=== PATIENT | male | born 1960 | race Caucasian/White ===

== ENCOUNTER 2017-12-26 23:31 | Inpatient (IN) ==
--- NOTE | 2017-12-27 00:17 | ED ---
HPI General Chief Complaint: Chest Pain Stated Complaint: Chest pain Time Seen by Provider: 12/27/17 00:06 History of Present Illness HPI narrative: Patient is 57-year-old male with history of [place] in October 2017, CABG done induced February 2017, with stents, on Brilinta, history of high blood pressure. Patient felt indigestion type pressure chest pain for 2 hours. The symptoms were similar to his October non-STEMI. Patient took 2 tablets of nitroglycerin and pain resolved. In the emergency room patient has mild headache. Related Data Home Medications Medication Instructions Recorded Confirmed Carafate 140 mg PO DAILY NEB PRN 12/26/17 12/27/17 amlodipine 2.5 mg PO DAILY 12/26/17 12/26/17 aspirin [Aspirin Low Dose] 81 mg PO DAILY 12/26/17 12/26/17 evolocumab [Repatha Syringe] 140 mg SUBCUT Q2W 12/26/17 12/26/17 metoprolol tartrate 25 mg PO BID 12/26/17 12/26/17 nitroglycerin [Nitrostat] 0.4 mg SUBLINGUAL Q5-15M PRN 12/26/17 12/26/17 pantoprazole [Protonix] 40 mg PO DAILY 12/26/17 12/26/17 pitavastatin calcium [Livalo] 2 mg PO DAILY 12/26/17 12/27/17 sertraline [Zoloft] 50 mg PO DAILY 12/26/17 12/26/17 ticagrelor [Brilinta] 90 mg PO BID 12/26/17 12/26/17 lisinopril 2.5 mg PO DAILY 12/27/17 12/27/17 Allergies Allergy/AdvReac Type Severity Reaction Status Date / Time penicillin V Allergy Arrhythmias Verified 12/26/17 23:37 Sulfa (Sulfonamide Allergy Drowsiness Verified 12/26/17 23:37 Antibiotics) Review of Systems ROS: all other systems reviewed are negative Cardiovascular Reports chest pain PMFSH Medical History Medical History Anxiety (Acute) CAD (coronary artery disease) of bypass graft (Acute) GERD (gastroesophageal reflux disease) (Acute) Hyperlipidemia (Acute) Hypertension (Acute) Myocardial infarction (Acute) Surgical History Surgical History Hx of cardiac cath (Acute) Stented coronary artery (Acute) Family History Family History Other Family history normal Social History Social History Substance History: No History of Abuse Second Hand Smoke Exposure: No Smoking Status: Former smoker How Often Do You Have a Drink Containing Alcohol: Never Recent Travel in [facility] within the Last 8 Weeks: No Recent Out of Country Travel within the Last 8 Weeks: No Immunization History Tetanus Immunization: >5 Years Exam Narrative Exam Narrative: GENERAL: [-57-year-old male in no apparent distress.] SKIN: Focused skin assessment warm/dry. HEAD: Atraumatic. Normocephalic. EYES: Pupils equal and round. No scleral icterus. No injection or drainage. ENT: No nasal bleeding or discharge. Mucous membranes pink and moist. NECK: Trachea midline. No JVD. CARDIOVASCULAR: Regular rate and rhythm. No murmur appreciated. RESPIRATORY: No accessory muscle use. Clear to auscultation. Breath sounds equal bilaterally. GASTROINTESTINAL: Abdomen soft, non-tender, nondistended. Hepatic and splenic margins not palpable. MUSCULOSKELETAL: No obvious deformities. No clubbing. No cyanosis. No edema. NEUROLOGICAL: Awake and alert. No obvious cranial nerve deficits. Motor grossly within normal limits. Normal speech. PSYCHIATRIC: Appropriate mood and affect; insight and judgment normal. Course Initial Documented Vital Signs Temperature 97.4 F L 12/26/17 23:37 Pulse Rate 68 12/26/17 23:37 Respiratory Rate 20 12/26/17 23:37 Blood Pressure 121/65 12/26/17 23:37 Pulse Oximetry 95 12/26/17 23:37 Last Documented Vital Signs Temperature 97.3 F L 12/27/17 19:00 Pulse Rate 62 12/27/17 21:00 Respiratory Rate 18 12/27/17 19:00 Blood Pressure 108/61 12/27/17 19:00 Pulse Oximetry 94 L 12/27/17 19:00 Medical Decision Making MDM Narrative Medical decision making narrative: Cardiac workup ordered, aspirin given for chest pain and headache. IV fluids ordered for low blood pressure due to nitroglycerin use. Reevaluation is pending. 0140: Patient is burping. No chest pain reported. First set of cardiac enzymes is negative, calcium was low, replaced. Patient will be transferred to chest pain center for further evaluation and treatment. Medical Screen Exam Complete: Yes Emergency Medical Condition: Yes Lab Data Result diagrams: 12/27/17 00:10 12/27/17 00:10 Lab Results 12/27/17 12/27/17 12/27/17 Range/Units 00:10 00:10 00:10 WBC 10.2 (4.0-11.0) th/mm3 RBC 4.41 L (4.50-5.90) mil/mm3 Hgb 15.2 (13.0-17.0) gm/dL Hct 42.2 (39.0-51.0) % MCV 95.5 (80.0-100.0) fL MCH 34.6 H (27.0-34.0) pg MCHC 36.2 H (32.0-36.0) % RDW 13.5 (11.6-17.2) % Plt Count 282 (150-450) th/mm3 MPV 8.5 (7.0-11.0) fL Prelim Diff (Auto) Slide review pending Neut % (Auto) 55.3 (16.0-70.0) % Lymph % (Auto) 31.9 (9.0-44.0) % [place] % (Auto) 8.8 H (0.0-8.0) % Eos % (Auto) 2.9 (0.0-4.0) % Baso % (Auto) 1.1 (0.0-2.0) % Neut # (Auto) 5.6 (1.8-7.7) th/mm3 Lymph # (Auto) 3.3 (1.0-4.8) th/mm3 [place] # (Auto) 0.9 (0.0-0.9) th/mm3 Eos # (Auto) 0.3 (0.0-0.4) th/mm3 Baso # (Auto) 0.1 (0.0-0.2) th/mm3 WBC Differential . Diff Scan Auto diff confirmed Differential Comment . Platelet Estimate Normal (Normal) Platelet Morphology Normal (Normal) PT 9.8 (9.8-11.6) sec INR 1.0 Ratio APTT 26.4 (24.3-30.1) sec Sodium 144 (136-145) meq/L Potassium 3.9 (3.5-5.1) meq/L Chloride 111 H (98-107) meq/L Carbon Dioxide 25.1 (21.0-32.0) meq/L Anion Gap 8 (5-15) meq/L BUN 14 (7-18) mg/dL Creatinine 1.02 (0.60-1.30) mg/dL Estimated GFR 75 L (>89) mL/min POC Glucose (68-110) mg/dl Random Glucose 158 H (74-106) mg/dL Calcium 7.1 L* (8.5-10.1) mg/dL Prot Corrected Calcium 7.2 L* (8.5-10.1) mg/dL Total Bilirubin 0.6 (0.2-1.0) mg/dL AST 61 H (15-37) U/L ALT 45 (12-78) U/L Alkaline Phosphatase 108 (45-117) U/L Total Creatine Kinase 128 (39-308) U/L CK-MB (CK-2) Less than 1.0 (0.5-3.6) ng/mL Troponin I Less than 0.02 L (0.02-0.05) ng/mL B-Natriuretic Peptide (0-100) pg/mL Total Protein 7.0 (6.4-8.2) g/dL Albumin 3.7 (3.4-5.0) g/dL 12/27/17 12/27/17 12/27/17 Range/Units 00:10 04:20 07:32 WBC (4.0-11.0) th/mm3 RBC (4.50-5.90) mil/mm3 Hgb (13.0-17.0) gm/dL Hct (39.0-51.0) % MCV (80.0-100.0) fL MCH (27.0-34.0) pg MCHC (32.0-36.0) % RDW (11.6-17.2) % Plt Count (150-450) th/mm3 MPV (7.0-11.0) fL Prelim Diff (Auto) Neut % (Auto) (16.0-70.0) % Lymph % (Auto) (9.0-44.0) % [place] % (Auto) (0.0-8.0) % Eos % (Auto) (0.0-4.0) % Baso % (Auto) (0.0-2.0) % Neut # (Auto) (1.8-7.7) th/mm3 Lymph # (Auto) (1.0-4.8) th/mm3 [place] # (Auto) (0.0-0.9) th/mm3 Eos # (Auto) (0.0-0.4) th/mm3 Baso # (Auto) (0.0-0.2) th/mm3 WBC Differential Diff Scan Differential Comment Platelet Estimate (Normal) Platelet Morphology (Normal) PT (9.8-11.6) sec INR Ratio APTT (24.3-30.1) sec Sodium (136-145) meq/L Potassium (3.5-5.1) meq/L Chloride (98-107) meq/L Carbon Dioxide (21.0-32.0) meq/L Anion Gap (5-15) meq/L BUN (7-18) mg/dL Creatinine (0.60-1.30) mg/dL Estimated GFR (>89) mL/min POC Glucose 100 (68-110) mg/dl Random Glucose (74-106) mg/dL Calcium (8.5-10.1) mg/dL Prot Corrected Calcium (8.5-10.1) mg/dL Total Bilirubin (0.2-1.0) mg/dL AST (15-37) U/L ALT (12-78) U/L Alkaline Phosphatase (45-117) U/L Total Creatine Kinase (39-308) U/L CK-MB (CK-2) (0.5-3.6) ng/mL Troponin I Less than 0.02 L (0.02-0.05) ng/mL B-Natriuretic Peptide 56 (0-100) pg/mL Total Protein (6.4-8.2) g/dL Albumin (3.4-5.0) g/dL 12/27/17 Range/Units 07:35 WBC (4.0-11.0) th/mm3 RBC (4.50-5.90) mil/mm3 Hgb (13.0-17.0) gm/dL Hct (39.0-51.0) % MCV (80.0-100.0) fL MCH (27.0-34.0) pg MCHC (32.0-36.0) % RDW (11.6-17.2) % Plt Count (150-450) th/mm3 MPV (7.0-11.0) fL Prelim Diff (Auto) Neut % (Auto) (16.0-70.0) % Lymph % (Auto) (9.0-44.0) % [place] % (Auto) (0.0-8.0) % Eos % (Auto) (0.0-4.0) % Baso % (Auto) (0.0-2.0) % Neut # (Auto) (1.8-7.7) th/mm3 Lymph # (Auto) (1.0-4.8) th/mm3 [place] # (Auto) (0.0-0.9) th/mm3 Eos # (Auto) (0.0-0.4) th/mm3 Baso # (Auto) (0.0-0.2) th/mm3 WBC Differential Diff Scan Differential Comment Platelet Estimate (Normal) Platelet Morphology (Normal) PT (9.8-11.6) sec INR Ratio APTT (24.3-30.1) sec Sodium (136-145) meq/L Potassium (3.5-5.1) meq/L Chloride (98-107) meq/L Carbon Dioxide (21.0-32.0) meq/L Anion Gap (5-15) meq/L BUN (7-18) mg/dL Creatinine (0.60-1.30) mg/dL Estimated GFR (>89) mL/min POC Glucose (68-110) mg/dl Random Glucose (74-106) mg/dL Calcium (8.5-10.1) mg/dL Prot Corrected Calcium (8.5-10.1) mg/dL Total Bilirubin (0.2-1.0) mg/dL AST (15-37) U/L ALT (12-78) U/L Alkaline Phosphatase (45-117) U/L Total Creatine Kinase 122 (39-308) U/L CK-MB (CK-2) (0.5-3.6) ng/mL Troponin I Less than 0.02 L (0.02-0.05) ng/mL B-Natriuretic Peptide (0-100) pg/mL Total Protein (6.4-8.2) g/dL Albumin (3.4-5.0) g/dL Imaging Data Radiologist's impression: Chest X-Ray 12/27/17 00:11 CONCLUSION: No acute disease ECG Data EKG Prior to Arrival: Yes Attestation: I personally reviewed and interpreted this ECG as follows: Prior ECG tracings: available for review Interpretation: Sinus bradycardia at rate 57 nonspecific T wave inversions, no ST elevation. Discharge Plan Discharge Disposition Patient Disposition: 30 Still Patient Discharge Condition Condition: Fair Discharge Details Diagnosis: Atypical chest pain Physicians Team ED Provider: Kodak Mckinley Primary Care Provider: Murray Cage Attending Provider: Earline Sotelo Other Providers: Zulma Mitchell Status ED Status: Left Department Discharge Information Discharge Date/Time: 12/27/17 06:15
[2017-12-27] MEDS ORDERED: Morphine Sulfate Inj 2 MG/ML Vial IV.PUSH ONE (00:28)
[2017-12-27] MEDS: Dextrose 5%/NaCl 0.45% Inj 1,000 ML IV.CONT SCH ×3 (00:42→13:30)
--- NOTE | 2017-12-27 00:42 | XR ---
EXAM DATE: 12/27/2017 12:11 AM EDT AGE/SEX: 57 years / Male INDICATIONS: Chest pain. CLINICAL DATA: This is the patient's initial encounter. Patient reports that signs and symptoms have been present for 1 day and indicates a pain score of 5/10. MEDICAL/SURGICAL HISTORY: . Myocardial infarction. CABG. COMPARISON: No prior exams available for comparison. FINDINGS: A single AP view of the chest demonstrates the lungs to be symmetrically aerated without evidence of mass, infiltrate or effusion. The cardiomediastinal contours are unremarkable. Osseous structures a re intact. Sternotomy wires and epicardial pacing leads noted CONCLUSION: No acute disease Electronically signed by: Murray Bergman MD 12/27/2017 12:41 AM EDT
[2017-12-27 00:51] LABS: Baso # (Auto) 0.1 th/mm3 (0.0-0.2); Baso % (Auto) 1.1 % (0.0-2.0); Eos # (Auto) 0.3 th/mm3 (0.0-0.4); Eos % (Auto) 2.9 % (0.0-4.0); Hematocrit 42.2 % (39.0-51.0); Hemoglobin 15.2 gm/dL (13.0-17.0); Lymph # (Auto) 3.3 th/mm3 (1.0-4.8); Lymph % (Auto) 31.9 % (9.0-44.0); Mean Corpuscular Hemoglobin 34.6 pg (27.0-34.0); Mean Corpuscular Volume 95.5 fL (80.0-100.0); Mean Platelet Volume 8.5 fL (7.0-11.0); Mono # (Auto) 0.9 th/mm3 (0.0-0.9); Mono % (Auto) 8.8 % (0.0-8.0); Neut # (Auto) 5.6 th/mm3 (1.8-7.7); Neut % (Auto) 55.3 % (16.0-70.0); Platelet Count 282 th/mm3 (150-450); Red Blood Count 4.41 mil/mm3 (4.50-5.90); Red Cell Distribution Width 13.5 % (11.6-17.2); White Blood Count 10.2 th/mm3 (4.0-11.0)
[2017-12-27 00:57] LABS: Mean Corpuscular HGB Conc 36.2 % (32.0-36.0)
[2017-12-27 01:08] LABS: Activated Partial Thrombo Time 26.4 sec (24.3-30.1)
[2017-12-27] MEDS ORDERED: Aluminum/Magnesium/Simethacone Susp 30 ML UDC PO ONE (01:13)
[2017-12-27 01:14] LABS: Prothrombin Time 9.8 sec (9.8-11.6)
[2017-12-27 01:27] LABS: Platelet Estimate Normal (Normal); Platelet Morphology Normal (Normal)
[2017-12-27 01:28] LABS: Albumin 3.7 g/dL (3.4-5.0); Alkaline Phosphatase 108 U/L (45-117); Anion Gap 8 meq/L (5-15); Blood Urea Nitrogen 14 mg/dL (7-18); Calcium 7.1 mg/dL (8.5-10.1); Carbon Dioxide 25.1 meq/L (21.0-32.0); Chloride 111 meq/L (98-107); Creatine Kinase 128 U/L (39-308); Glomerular Filtration Rate 75 mL/min (>89); Glucose,Random 158 mg/dL (74-106)
[2017-12-27 01:29] LABS: Potassium 3.9 meq/L (3.5-5.1); Sodium 144 meq/L (136-145)
[2017-12-27] MEDS ORDERED: Dicyclomine Inj 20 MG/2 ML Ampul IM ONE (01:47)
[2017-12-27 01:56] LABS: Aspartate Aminotransferase 61 U/L (15-37)
[2017-12-27 02:38] LABS: Alanine Aminotransferase 45 U/L (12-78)
[2017-12-27 08:50] LABS: Creatine Kinase 122 U/L (39-308)
[2017-12-27] MEDS: Acetaminophen 500 MG Tablet PO PRN ×3 (09:34→19:49)
--- NOTE | 2017-12-27 10:14 | P.HPCA ---
History of Present Illness Primary Care Physician: Murray Cage DO Chief Complaint: Chest pain History of Present Illness: This is a 57-year-old male with history of CAD that had 3 stents last year, a three-vessel bypass February 2017, and a stent to 1 of the grafts in April 2017 that presents to ED with complaint of chest pain. He describes a central/ left-sided chest pressure that occurs when he over exerts himself. He states just doing some mild walking is okay but if he goes over that, the discomfort will occur. He will take nitroglycerin and will resolve it. Last night he had a similar episode but is much more intense and found it similar to when he had his MS, when needed stents, and when he did bypass. His last stress test he states was in July of this year and really does not know the results. He saw Dr. Nigel Cobb as a new patient this past Friday, states his medications were changed and he has been compliant with them. He also states he quit smoking as of Friday. States that his rock lather told him that he would likely need another heart catheterization. Currently denies chest discomfort. He was short of breath, nauseous, and diaphoretic with the symptoms last night. Patient has history of CAD as mentioned above. History of hypertension hyperlipidemia. Past history of tobacco abuse but quit smoking 5 days ago. Both parents had CAD. Patient smokes 1 pack a series daily for 50 years until 4 days ago which time he quit. - Diagnosis (1) Chest pain (2) CAD (coronary artery disease) (3) Status post coronary artery bypass graft (4) History of heart artery stent (5) Hypertension (6) Hyperlipidemia (7) History of tobacco abuse (8) Hypocalcemia Review of Systems General: Patient denies fevers, chills, and recent travel. HEENT: Patient denies headache, sore throat, difficulty swallowing. Cardiovascular: Has the chest discomfort as mentioned above. Denies sensation of heart beating rapidly or irregularly. No syncope. He was diaphoretic last evening. Respiratory: He gets short of breath with his symptoms. Denies inspirational chest discomfort. Denies coughing wheezing or hemoptysis. GI: He was nauseous with his chest discomfort last evening. Patient denies vomiting, diarrhea, abdominal pain, bloody stools. Musculoskeletal: Patient denies joint pain or edema. Denies calf pain or edema. Neurovascular: Patient denies numbness, tingling, weakness in extremities. Denies headache. Endocrine: Denies polyuria and polydipsia. Hematologic: Denies easy bruising. Skin: Denies rash or itching. PMFSH - History History Provided By: Patient - Medical History Medical History: Medical History (Last Updated 12/26/17 @ 23:38 by Marie Holt RN) Myocardial infarction - Tobacco History Second Hand Smoke Exposure: No Tobacco Use In Past 30 Days: No Smoking Status: Former smoker - Alcohol History How Often Do You Have a Drink Containing Alcohol: Never - Substance Use History Substance History: No History of Abuse - Travel History Recent Travel in the [place] Within the Last 8 Weeks: No Recent Travel Out of the Country Within the Last 8 Weeks: No - Immunization History Tetanus Immunization: >5 Years Medications and Allergies Active Medications: Active Medications Acetaminophen (Tylenol) 500 mg PO Q6H PRN PRN Reason: pain scale 1-5 Last Admin: 12/27/17 09:34 Dose: 500 mg Dextrose/Sodium Chloride (D5w/1/2 Ns Inj) 1,000 mls @ 200 mls/hr IV.CONT .Q5H DAVID Last Admin: 12/27/17 08:07 Dose: Not Given Sodium Chloride (Ns Flush) 2 ml IV.FLUSH UNSCH PRN PRN Reason: FLUSH AFTER USING IV ACCESS Allergies Allergy/AdvReac Type Severity Reaction Status Date / Time penicillin V Allergy Arrhythmias Verified 12/26/17 23:37 Sulfa (Sulfonamide Allergy Drowsiness Verified 12/26/17 23:37 Antibiotics) Home Medications Medication Instructions Recorded Confirmed Type Carafate 140 mg PO DAILY NEB PRN 12/26/17 12/27/17 History amlodipine 2.5 mg PO DAILY 12/26/17 12/26/17 History aspirin [Aspirin Low Dose] 81 mg PO DAILY 12/26/17 12/26/17 History evolocumab [Repatha Syringe] 140 mg SUBCUT Q2W 12/26/17 12/26/17 History metoprolol tartrate 25 mg PO BID 12/26/17 12/26/17 History nitroglycerin [Nitrostat] 0.4 mg SUBLINGUAL Q5-15M PRN 12/26/17 12/26/17 History pantoprazole [Protonix] 40 mg PO DAILY 12/26/17 12/26/17 History pitavastatin calcium [Livalo] 2 mg PO DAILY 12/26/17 12/27/17 History sertraline [Zoloft] 50 mg PO DAILY 12/26/17 12/26/17 History ticagrelor [Brilinta] 90 mg PO BID 12/26/17 12/26/17 History Exam Vital signs: Vital Signs 12/26/17 23:37 12/26/17 23:43 12/27/17 00:18 Temperature 97.4 F L Pulse Rate 68 70 Respiratory Rate 20 18 Blood Pressure 121/65 116/57 L Pulse Oximetry 95 96 96 12/27/17 02:37 12/27/17 07:51 12/27/17 08:19 Temperature 98.0 F Pulse Rate 54 L 55 L Respiratory Rate 18 16 Blood Pressure 95/54 L 102/65 Pulse Oximetry 98 94 L 98 Intake & Output 12/26/17 12/27/17 12/27/17 18:59 06:59 18:59 Intake Total 0 / 0 0 / 0 Balance 0 / 0 0 / 0 Weight 85.729 kg Intake: IV 0 / 0 D5W/1/2 NS Inj 1,000 ML @ 200 0 / 0 mls/hr IV.CONT .Q5H [facility] Rx#: [id number] Oral 0 / 0 Other: Weight On Admission 85.729 kg Narrative: GENERAL: This is a well-nourished, well-developed patient, in no apparent distress. Patient speaks in clear complete sentences. Patient is pleasant. HEENT: Head is atraumatic and normocephalic. Neck is supple without lymphadenopathy and trachea is midline. No JVD or carotid bruits. CARDIOVASCULAR: Grade 2 systolic murmur left sternal border. Regular rate and rhythm without gallops or rubs. RESPIRATORY: Clear to auscultation. Breath sounds equal bilaterally. No wheezes , rales, or rhonchi. Chest wall is nontender. Well-healed midline scar over sternum from prior sternotomy. No use of accessory muscles. GASTROINTESTINAL: Abdomen is nontender, nondistended. Abdomen soft. No obvious pulsatile mass or bruit. No CVA tenderness. Strong femoral pulses bilaterally. Normal bowel sounds in all quadrants. MUSCULOSKELETAL: Patient is moving upper and lower extremities freely. No calf tenderness or edema, no Homans sign. Strong pulses in upper and lower extremities. NEUROLOGICAL: Patient is alert and oriented. Cranial nerves 2-12 are grossly intact. No focal deficits and speech is clear. SKIN: No rash and turgor is normal. Results 12/27/17 00:10 12/27/17 00:10 Cardiac Enzymes 12/27/17 12/27/17 12/27/17 Range/Units 00:10 00:10 04:20 AST 61 H (15-37) U/L CK-MB (CK-2) Less than 1.0 (0.5-3.6) ng/mL Troponin I Less than 0.02 L Less than 0.02 L (0.02-0.05) ng/mL B-Natriuretic Peptide 56 (0-100) pg/mL 12/27/17 Range/Units 07:35 AST (15-37) U/L CK-MB (CK-2) (0.5-3.6) ng/mL Troponin I Less than 0.02 L (0.02-0.05) ng/mL B-Natriuretic Peptide (0-100) pg/mL Coagulation 12/27/17 12/27/17 Range/Units 00:10 00:10 PT 9.8 (9.8-11.6) sec APTT 26.4 (24.3-30.1) sec B-Natriuretic Peptide 56 (0-100) pg/mL CBC 12/27/17 Range/Units 00:10 WBC 10.2 (4.0-11.0) th/mm3 RBC 4.41 L (4.50-5.90) mil/mm3 Hgb 15.2 (13.0-17.0) gm/dL Hct 42.2 (39.0-51.0) % Plt Count 282 (150-450) th/mm3 Neut # (Auto) 5.6 (1.8-7.7) th/mm3 Lymph # (Auto) 3.3 (1.0-4.8) th/mm3 [place] # (Auto) 0.9 (0.0-0.9) th/mm3 Eos # (Auto) 0.3 (0.0-0.4) th/mm3 Baso # (Auto) 0.1 (0.0-0.2) th/mm3 Comprehensive Metabolic Panel 12/27/17 Range/Units 00:10 Sodium 144 (136-145) meq/L Potassium 3.9 (3.5-5.1) meq/L Chloride 111 H (98-107) meq/L Carbon Dioxide 25.1 (21.0-32.0) meq/L BUN 14 (7-18) mg/dL Creatinine 1.02 (0.60-1.30) mg/dL Calcium 7.1 L* (8.5-10.1) mg/dL AST 61 H (15-37) U/L ALT 45 (12-78) U/L Alkaline Phosphatase 108 (45-117) U/L Total Protein 7.0 (6.4-8.2) g/dL Albumin 3.7 (3.4-5.0) g/dL Intake and Output 12/26/17 12/27/17 12/27/17 22:59 06:59 14:59 Intake Total 0 / 0 0 / 0 Balance 0 / 0 0 / 0 Intake: IV 0 / 0 D5W/1/2 NS Inj 1,000 ML @ 200 0 / 0 mls/hr IV.CONT .Q5H [facility] Rx#: [id number] Oral 0 / 0 Other: Weight 85.729 kg Weight On Admission 85.729 kg - Imaging and Cardiology Imaging: Impressions Chest X-Ray 12/27/17 00:11 CONCLUSION: No acute disease EKG interpretations - EKG EKG shows: sinus rhythm (EKGs are sinus rhythm with incomplete right bundle branch block.) Caprini VTE Risk Assessment Caprini VTE Risk Assessment: No/Low Risk (score <= 1) Caprini Risk Assessment Model: Point Value = 1 Point Value = 2 Point Value = 3 Point Value = 5 Age 41-60 Minor surgery BMI > 25 kg/m2 Swollen legs Varicose veins or History of unexplained or recurrent spontaneous Oral contraceptives or hormone replacement Sepsis (< 1 month) Serious lung disease, including pneumonia (< 1 month) Abnormal pulmonary function Acute myocardial infarction Congestive heart failure (< 1 month) History of inflammatory bowel disease Medical patient at bed rest Age 61-74 Arthroscopic surgery Major open surgery (> 45 min) Laparoscopic surgery (> 45 min) Malignancy Confined to bed (> 72 hours) Immobilizing plaster cast Central venous access Age >= 75 History of VTE Family history of VTE Factor V Leiden Prothrombin [id number] Lupus anticoagulant Anticardiolipin antibodies Elevated serum homocysteine Heparin-induced thrombocytopenia Other congenital or acquired thrombophilia Stroke (< 1 month) Elective arthroplasty Hip, pelvis, or leg fracture Acute spinal cord injury (< 1 month) Prophylaxis Regimen: Total Risk Factor Score Risk Level Prophylaxis Regimen 0-1 Low Early ambulation 2 Moderate Order ONE of the following: *Sequential Compression Device (SCD) *Heparin 5000 units SQ BID 3-4 Higher Order ONE of the following medications: *Heparin 5000 units SQ TID *Enoxaparin/Lovenox 40 mg SQ daily (WT < 150 kg, CrCl > 30 mL/min) *Enoxaparin/Lovenox 30 mg SQ daily (WT < 150 kg, CrCl > 10-29 mL/min) *Enoxaparin/Lovenox 30 mg SQ BID (WT < 150 kg, CrCl > 30 mL/min) AND/OR *Sequential Compression Device (SCD) 5 or more Highest Order ONE of the following medications: *Heparin 5000 units SQ TID (Preferred with Epidurals) *Enoxaparin/Lovenox 40 mg SQ daily (WT < 150 kg, CrCl > 30 mL/min) *Enoxaparin/Lovenox 30 mg SQ daily (WT < 150 kg, CrCl > 10-29 mL/min) *Enoxaparin/Lovenox 30 mg SQ BID (WT < 150 kg, CrCl > 30 mL/min) AND *Sequential Compression Device (SCD) Assessment and Plan - Assessment (1) Chest pain Code(s): R07.9 - Chest pain, unspecified Status: Acute (2) CAD (coronary artery disease) Code(s): I25.10 - Atherosclerotic heart disease of [place] coronary artery without angina pectoris Status: Acute (3) Status post coronary artery bypass graft Code(s): Z95.1 - Presence of aortocoronary bypass graft Status: Acute (4) History of heart artery stent Code(s): Z95.5 - Presence of coronary angioplasty implant and graft Status: Acute (5) Hypertension Code(s): I10 - Essential (primary) hypertension Status: Acute (6) Hyperlipidemia Code(s): E78.5 - Hyperlipidemia, unspecified Status: Acute (7) History of tobacco abuse Code(s): Z87.891 - Personal history of nicotine dependence Status: Acute (8) Hypocalcemia Code(s): E83.51 - Hypocalcemia Status: Acute - Plan * Chest pain: Patient has had serial cardiac enzymes and EKGs for ruling out purposes. Symptoms are concerning for unstable angina. We will continue his medications. He is being seen by Dr. Jeffery cardiology of chest pain center. He will need admission to [facility] with consultation to Dr. Cobb. Further plan pending his evaluation. * History of CAD: Patient has history of CAD with stents, CABG, and stent again. This will be reassessed by his rock lather. * Hypertension: Continue medication. * Hyperlipidemia: Continue medication. * History of tobacco abuse: Patient states he recently quit smoking 4 days ago. Encouraged to continue smoking cessation. * Hypocalcemia: Patient was given calcium replacement in the ED. He is agreeable to this plan. H&P: Quality - VTE Deep Vein Thrombosis/Pulmonary Embolism Present on Admission: No
[2017-12-27] MEDS ORDERED: Bisacodyl 10 MG Supp RECTAL PRN (13:10)
[2017-12-27] MEDS ORDERED: Sucralfate Liq 1 GM/10 ML UDC PO PRN (13:11)
--- NOTE | 2017-12-27 13:21 | P.HPIM ---
History of Present Illness Service: [facility] Primary Care Physician: Murray Cage DO Chief Complaint: Chest pain History of Present Illness: This is a 57-year-old CM with PMHx of CAD s/p stent placement x3/three-vessel bypass 02/2017, and an additional stent to 1 of the grafts on 04/2017 that presents to ED with complaints of chest pain. Patient reports that the CP feels like pressure and burning, similar to GERD sx but do not resolved with Tums. The sx worsen with ambulation or minimal exertion. Patient took NG x last night and it relieved sx for 15min. but then the sx recurred. Patient states that the sx are similar to when he had his MT, when needed stents/bypass. Reports Stress test 07/2017 with unknown results. Patient was seen by Dr. Nigel Cobb as a new patient this past Friday, states his medications were changed and he has been compliant with them. Patient is a former smoker, he quit last week. Patient reports that his Tax Technician told him that he would likely need another heart catheterization. Patient reports sx are milder today then on admission, patient also have more burping since admission. Patient also has HTN and HLD and is compliant with meds. Review of Systems All other systems reviewed negative except as stated in HPI [facility] - History History Provided By: Patient - Medical History Medical History: Medical History (Last Updated 12/27/17 @ 13:02 by Earline Sotelo MD) Anxiety CAD (coronary artery disease) of bypass graft GERD (gastroesophageal reflux disease) Hyperlipidemia Hypertension Myocardial infarction - Surgical History Surgical History: Surgical History (Last Updated 12/27/17 @ 13:03 by Earline Sotelo MD) Hx of cardiac cath Stented coronary artery - Family History Family History: Family History (Last Updated 12/27/17 @ 13:02 by Earline Sotelo MD) Other Family history normal - Social History I have reviewed the patient's Social History: Yes - Tobacco History Second Hand Smoke Exposure: No Tobacco Use In Past 30 Days: No Smoking Status: Former smoker - Alcohol History How Often Do You Have a Drink Containing Alcohol: Never - Substance Use History Substance History: No History of Abuse - Travel History Recent Travel in the [place] Within the Last 8 Weeks: No Recent Travel Out of the Country Within the Last 8 Weeks: No - Immunization History Tetanus Immunization: >5 Years Medications and Allergies Active Medications: Active Medications Acetaminophen (Tylenol) 500 mg PO Q6H PRN PRN Reason: pain scale 1-5 Last Admin: 12/27/17 09:34 Dose: 500 mg Amlodipine Besylate (Norvasc) 2.5 mg PO DAILY [facility] Aspirin (Ecotrin) 81 mg PO DAILY [facility] Dextrose/Sodium Chloride (D5w/1/2 Ns Inj) 1,000 mls @ 200 mls/hr IV.CONT .Q5H [facility] Last Admin: 12/27/17 08:07 Dose: Not Given Nitroglycerin (Nitro-Bid 2% Oint) 0.5 inch TOPICAL Q8HR [facility] Pantoprazole Sodium (Protonix) 40 mg PO DAILY [facility] Pravastatin Sodium (Pravachol) 40 mg PO DAILY [facility] Ranolazine (Ranexa) 1,000 mg PO BID [facility] Sertraline HCl (Zoloft) 50 mg PO DAILY [facility] Sodium Chloride (Ns Flush) 2 ml IV.FLUSH UNSCH PRN PRN Reason: FLUSH AFTER USING IV ACCESS Ticagrelor (Brilinta) 90 mg PO BID [facility] Allergies Allergy/AdvReac Type Severity Reaction Status Date / Time penicillin V Allergy Arrhythmias Verified 12/26/17 23:37 Sulfa (Sulfonamide Allergy Drowsiness Verified 12/26/17 23:37 Antibiotics) Home Medications Medication Instructions Recorded Confirmed Type Carafate 140 mg PO DAILY NEB PRN 12/26/17 12/27/17 History amlodipine 2.5 mg PO DAILY 12/26/17 12/26/17 History aspirin [Aspirin Low Dose] 81 mg PO DAILY 12/26/17 12/26/17 History evolocumab [Repatha Syringe] 140 mg SUBCUT Q2W 12/26/17 12/26/17 History metoprolol tartrate 25 mg PO BID 12/26/17 12/26/17 History nitroglycerin [Nitrostat] 0.4 mg SUBLINGUAL Q5-15M PRN 12/26/17 12/26/17 History pantoprazole [Protonix] 40 mg PO DAILY 12/26/17 12/26/17 History pitavastatin calcium [Livalo] 2 mg PO DAILY 12/26/17 12/27/17 History sertraline [Zoloft] 50 mg PO DAILY 12/26/17 12/26/17 History ticagrelor [Brilinta] 90 mg PO BID 12/26/17 12/26/17 History lisinopril 2.5 mg PO DAILY 12/27/17 12/27/17 History ranolazine [Ranexa] 1,000 mg PO BID 12/27/17 12/27/17 History Exam Vital signs: Vital Signs 12/26/17 23:37 12/26/17 23:43 12/27/17 00:18 Temperature 97.4 F L Pulse Rate 68 70 Respiratory Rate 20 18 Blood Pressure 121/65 116/57 L Pulse Oximetry 95 96 96 12/27/17 02:37 12/27/17 07:51 12/27/17 08:19 Temperature 98.0 F Pulse Rate 54 L 55 L Respiratory Rate 18 16 Blood Pressure 95/54 L 102/65 Pulse Oximetry 98 94 L 98 Intake & Output 12/26/17 12/27/17 12/27/17 18:59 06:59 18:59 Intake Total 0 / 0 0 / 0 Balance 0 / 0 0 / 0 Weight 85.729 kg Intake: IV 0 / 0 D5W/1/2 NS Inj 1,000 ML @ 200 0 / 0 mls/hr IV.CONT .Q5H [facility] Rx#: [id number] Oral 0 / 0 Other: Weight On Admission 85.729 kg Narrative: GENERAL: Well-nourished male, in NAD, lying comfortably SKIN: Warm and dry. Well healed vertical scar on chest. HEAD: Normocephalic. EYES: No scleral icterus. No injection or drainage. NECK: Supple, trachea midline. No JVD or lymphadenopathy. CARDIOVASCULAR: Regular rate and rhythm without murmurs, gallops, or rubs. No CP ilcited on palpation. RESPIRATORY: Breath sounds equal bilaterally. No accessory muscle use. GASTROINTESTINAL: Abdomen soft, non-tender, nondistended. MUSCULOSKELETAL: No cyanosis, or edema. BACK: Nontender without obvious deformity. No CVA tenderness. NEURO: AAOx3, motor strength 5/5 Results - Labs CBC & Chem 7: 12/27/17 00:10 12/27/17 00:10 Labs: Short CBC 12/27/17 Range/Units 00:10 WBC 10.2 (4.0-11.0) th/mm3 Hgb 15.2 (13.0-17.0) gm/dL Hct 42.2 (39.0-51.0) % Plt Count 282 (150-450) th/mm3 BMP 12/27/17 00:10 Sodium 144 Potassium 3.9 Chloride 111 H Carbon Dioxide 25.1 BUN 14 Creatinine 1.02 Calcium 7.1 L* Cardiac Enzymes 12/27/17 12/27/17 12/27/17 Range/Units 00:10 04:20 07:35 Total Creatine Kinase 128 122 (39-308) U/L CK-MB (CK-2) Less than 1.0 (0.5-3.6) ng/mL Troponin I Less than 0.02 L Less than 0.02 L Less than 0.02 L (0.02-0.05) ng/mL Liver Function 12/27/17 Range/Units 00:10 Total Bilirubin 0.6 (0.2-1.0) mg/dL AST 61 H (15-37) U/L ALT 45 (12-78) U/L Alkaline Phosphatase 108 (45-117) U/L Albumin 3.7 (3.4-5.0) g/dL - Imaging Impressions Chest X-Ray 12/27/17 00:11 CONCLUSION: No acute disease Caprini VTE Risk Assessment Caprini VTE Risk Assessment: No/Low Risk (score <= 1) Caprini Risk Assessment Model: Point Value = 1 Point Value = 2 Point Value = 3 Point Value = 5 Age 41-60 Minor surgery BMI > 25 kg/m2 Swollen legs Varicose veins or History of unexplained or recurrent spontaneous Oral contraceptives or hormone replacement Sepsis (< 1 month) Serious lung disease, including pneumonia (< 1 month) Abnormal pulmonary function Acute myocardial infarction Congestive heart failure (< 1 month) History of inflammatory bowel disease Medical patient at bed rest Age 61-74 Arthroscopic surgery Major open surgery (> 45 min) Laparoscopic surgery (> 45 min) Malignancy Confined to bed (> 72 hours) Immobilizing plaster cast Central venous access Age >= 75 History of VTE Family history of VTE Factor V Leiden Prothrombin [id number] Lupus anticoagulant Anticardiolipin antibodies Elevated serum homocysteine Heparin-induced thrombocytopenia Other congenital or acquired thrombophilia Stroke (< 1 month) Elective arthroplasty Hip, pelvis, or leg fracture Acute spinal cord injury (< 1 month) Prophylaxis Regimen: Total Risk Factor Score Risk Level Prophylaxis Regimen 0-1 Low Early ambulation 2 Moderate Order ONE of the following: *Sequential Compression Device (SCD) *Heparin 5000 units SQ BID 3-4 Higher Order ONE of the following medications: *Heparin 5000 units SQ TID *Enoxaparin/Lovenox 40 mg SQ daily (WT < 150 kg, CrCl > 30 mL/min) *Enoxaparin/Lovenox 30 mg SQ daily (WT < 150 kg, CrCl > 10-29 mL/min) *Enoxaparin/Lovenox 30 mg SQ BID (WT < 150 kg, CrCl > 30 mL/min) AND/OR *Sequential Compression Device (SCD) 5 or more Highest Order ONE of the following medications: *Heparin 5000 units SQ TID (Preferred with Epidurals) *Enoxaparin/Lovenox 40 mg SQ daily (WT < 150 kg, CrCl > 30 mL/min) *Enoxaparin/Lovenox 30 mg SQ daily (WT < 150 kg, CrCl > 10-29 mL/min) *Enoxaparin/Lovenox 30 mg SQ BID (WT < 150 kg, CrCl > 30 mL/min) AND *Sequential Compression Device (SCD) Assessment and Plan - Plan This is a 57-year-old CM with PMHx of CAD s/p stent placement x3/three-vessel bypass 02/2017, and an additional stent to 1 of the grafts on 04/2017 that presents to ED with complaints of chest pain. Sx also concerning for GERD but do to history admitted for IP mgmt of Chest Pain, HD#1 1. Chest pain/Hx of CAD CE Neg x3, EKG WNL Sx concerning for unstable angina Cardiology consulted, appreciate assistance with management Cont. home Metoprolol, Aspirin, and Brilinta 2. HTN Stable Cont. home BB and Norvasc Continue to monitor 3. Hyperlipidemia Continue home Statin, holding Repatha 4. Anxiety Continue home Sertraline 5. GERD Continue home PPI and Carafate as needed 6. DVT PPX: SCD's (patient on Brilinta to prevent arterial thromboembolism) 7. Former smoker x1wk Encouraged continued cessation 8. Hypocalcemia Calcium 7.2 on admission Status post replacement in ED Follow-up CMP in a.m.This will be reassessed by his process control technician. 9. Dispo: Await cardiology recommendations Code Status: full Discussed Condition With: RN, , patient Discharge Planning: pending Cards reccs H&P: Quality - VTE Deep Vein Thrombosis/Pulmonary Embolism Present on Admission: No
--- NOTE | 2017-12-27 13:33 | ECG ---
Date Performed: 12/27/2017 Time Performed: 04:22:17 PTAGE: 57 years EKG: SINUS BRADYCARDIA INCOMPLETE RIGHT BUNDLE BRANCH BLOCK SEPTAL MYOCARDIAL INFARCTION ACUT E SC PREVIOUS TRACING : 12/26/2017 23.46 Since previous tracing, no significant change noted DOCTOR: Tobi Jeffery Interpretating Date/Time 12/27/2017 13:30:51
[2017-12-27] MEDS: amLODIPine 5 MG Tablet PO SCH (13:41)
--- NOTE | 2017-12-27 13:41 | ECG ---
Date Performed: 12/26/2017 Time Performed: 23:46:03 PTAGE: 57 years EKG: SINUS BRADYCARDIA POSSIBLE LEFT ATRIAL ENLARGEMENT INCOMPLETE RIGHT BUNDLE BRANCH BLOCK SEP МАРИНА MYOCARDIAL INFARCTION ACUTE PA NO PREVIOUS TRACING DOCTOR: Tobi Jeffery Interpretating Date/Time 12/27/2017 13:40:00
[2017-12-27] MEDS: Sertraline 50 MG Tablet PO SCH (13:42)
--- NOTE | 2017-12-27 13:51 | ECG ---
Date Performed: 12/27/2017 Time Performed: 07:46:14 PTAGE: 57 years EKG: SINUS BRADYCARDIA INCOMPLETE RIGHT BUNDLE BRANCH BLOCK SEPTAL MYOCARDIAL INFARCTION ACUT E OR PREVIOUS TRACING : 12/27/2017 04.22 Since previous tracing, no significant change noted DOCTOR: Tobi Jeffery Interpretating Date/Time 12/27/2017 13:50:46
[2017-12-27] MEDS ORDERED: Ranolazine 500 MG 12HR ER Tablet PO SCH (14:00)
[2017-12-27] MEDS: Metoprolol Tartrate 25 MG Tablet PO SCH ×2 (14:45→21:10)
--- NOTE | 2017-12-27 15:49 | MB ---
cc: Zulma Mitchell MD DATE: 12/27/2017 REASON FOR CONSULTATION: Unstable angina. HISTORY OF PRESENT ILLNESS: Mr. Soriano is a 57-year-old gentleman with history of coronary artery disease, high blood pressure, hyperlipidemia. He had coronary artery bypass grafting in 02/[address] in 10/2016. He developed angina on 03/2017. Or 04/2017. Left heart catheterization was performed and found 2 of the grafts occluded. Subsequently there was a stent placement. Last 07/2017 he had a nuclear stress test done in [place]. We do not know the result of the report. His last left heart catheterization apparently was reviewed by Dr. Cobb. The gentleman was at home last night, began with shortness of breath and chest pain on minimal activity. Pain relieved with rest. This is the same symptom he experienced when he was having the heart attack in 10/2017. He decided to come to the emergency room. Nitro was given, bedrest recommended. The patient's condition improved. I was consulted for evaluation and management. The chart was reviewed. The patient was evaluated. ALLERGIES: PENICILLIN AND SULFA. SOCIAL HISTORY: The patient stopped smoking years ago. FAMILY HISTORY: Noncontributory to his current medical condition. CURRENT MEDICATIONS: 1. Acetaminophen. 2. Amlodipine 2.5 mg a day. 3. Aspirin 81 mg a day. 4. Magnesium. 5. Metoprolol 25 mg twice a day. 6. He is on nitro sublingual. 7. He is on Ranexa 1000 mg twice a day. 8. Zoloft 50 mg a day. 9. Senokot. 10. Brilinta 90 mg twice a day. REVIEW OF SYSTEMS: Currently refers no chest pain because at rest. No chest discomfort. No vomiting. No fever. PHYSICAL EXAMINATION: GENERAL: Alert, fully oriented. VITAL SIGNS: His blood pressure 124/77, pulse 66, respiratory rate 18. LUNGS: Ventilated. CARDIOVASCULAR: S1, S2. There is a discrete systolic ejection murmur. ABDOMEN: Soft. No mass. No bruits. EXTREMITIES: No edema. DIAGNOSTIC DATA: Electrocardiogram indicates sinus rhythm, diffuse ST changes, incomplete right bundle branch block. LABORATORY DATA: Hemoglobin is 12.5, white blood cell 10.2. INR 1.0. Potassium is 3.9, creatinine 1.02. AST 61, ALT 45. Troponin less than 0.02. BNP 56. ASSESSMENT AND RECOMMENDATIONS: Mr. Soriano currently is asymptomatic, he is in bed. He is complaining of chest pain and discomfort on activity. He has typical angina. That improves with nitro. AT this point, my recommendation is to continue current management. This gentleman most likely needs a left heart catheterization, but I am going to wait to discuss the case with Dr. Cobb because he has already reviewed the previous cardiac catheterization that was done in 04/2017. This gentleman got to be transferred to the CICU need. I will monitor him during hospitalization. MD GEOVANNY Prince/victorino , 03:17 PM , 03:26 PM
[2017-12-27] MEDS: Senna/Docusate Sodium 8.6/50 MG Tablet PO SCH (21:11)
[2017-12-28] MEDS: Acetaminophen 500 MG Tablet PO PRN ×3 (01:01→19:13)
[2017-12-28 04:25] LABS: Baso # (Auto) 0.1 th/mm3 (0.0-0.2); Baso % (Auto) 0.8 % (0.0-2.0); Eos # (Auto) 0.2 th/mm3 (0.0-0.4); Eos % (Auto) 2.2 % (0.0-4.0); Hematocrit 40.5 % (39.0-51.0); Hemoglobin 13.8 gm/dL (13.0-17.0); Lymph # (Auto) 2.6 th/mm3 (1.0-4.8); Lymph % (Auto) 26.4 % (9.0-44.0); Mean Corpuscular HGB Conc 34.1 % (32.0-36.0); Mean Corpuscular Hemoglobin 32.2 pg (27.0-34.0); Mean Corpuscular Volume 94.4 fL (80.0-100.0); Mean Platelet Volume 8.6 fL (7.0-11.0); Mono # (Auto) 0.9 th/mm3 (0.0-0.9); Mono % (Auto) 9.1 % (0.0-8.0); Neut % (Auto) 61.5 % (16.0-70.0); Platelet Count 237 th/mm3 (150-450); Red Blood Count 4.29 mil/mm3 (4.50-5.90); Red Cell Distribution Width 13.5 % (11.6-17.2); White Blood Count 9.8 th/mm3 (4.0-11.0)
[2017-12-28 04:57] LABS: Alanine Aminotransferase 34 U/L (12-78); Albumin 3.4 g/dL (3.4-5.0); Alkaline Phosphatase 93 U/L (45-117); Anion Gap 7 meq/L (5-15); Aspartate Aminotransferase 20 U/L (15-37); Blood Urea Nitrogen 13 mg/dL (7-18); Calcium 8.1 mg/dL (8.5-10.1); Carbon Dioxide 24.7 meq/L (21.0-32.0); Chloride 110 meq/L (98-107); Glomerular Filtration Rate 82 mL/min (>89); Glucose,Random 93 mg/dL (74-106); Potassium 3.6 meq/L (3.5-5.1); Sodium 142 meq/L (136-145); Total Protein 6.3 g/dL (6.4-8.2)
--- NOTE | 2017-12-28 07:18 | P.PN ---
Subjective Interval history: Patient doing well, no new events. No concerns per RN. Patient tolerating p.o. , and voiding/stooling well. Patient reports chest pressure improved with morphine Physical Exam Vital signs: Vital Signs 12/27/17 07:51 12/27/17 08:19 12/27/17 12:00 Temperature 98.0 F 97.5 F L Pulse Rate 55 L 56 L Respiratory Rate 16 16 Blood Pressure 102/65 124/77 Pulse Oximetry 94 L 98 95 12/27/17 17:51 12/27/17 18:31 12/27/17 19:00 Temperature 98.0 F 97.3 F L Pulse Rate 53 L 53 L 54 L Respiratory Rate 18 18 Blood Pressure 111/59 L 108/61 Pulse Oximetry 95 94 L 12/27/17 20:00 12/27/17 21:00 12/27/17 22:00 Temperature Pulse Rate 56 L 62 52 L Respiratory Rate Blood Pressure Pulse Oximetry 12/27/17 23:00 12/28/17 00:00 12/28/17 01:00 Temperature 97.8 F Pulse Rate 52 L 48 L 54 L Respiratory Rate 20 Blood Pressure 95/52 L Pulse Oximetry 93 L 12/28/17 01:32 12/28/17 02:00 12/28/17 03:00 Temperature 97.7 F Pulse Rate 48 L 54 L Respiratory Rate 18 18 Blood Pressure 96/69 L Pulse Oximetry 94 L 12/28/17 04:00 12/28/17 05:00 12/28/17 06:00 Temperature Pulse Rate 48 L 53 L 52 L Respiratory Rate Blood Pressure Pulse Oximetry Intake & Output 12/27/17 12/28/17 12/28/17 18:59 06:59 18:59 Intake Total 0 / 0 240 / 240 Balance 0 / 0 240 / 240 Weight 83 kg Intake: IV 0 / 0 D5W/1/2 NS Inj 1,000 ML @ 200 0 / 0 mls/hr IV.CONT .Q5H [facility] Rx#: [id number] Oral 240 / 240 Other: # Voids 2 Narrative: GENERAL: Well-nourished male, in NAD, lying comfortably SKIN: Warm and dry. Well healed vertical scar on chest. HEAD: Normocephalic. EYES: No scleral icterus. No injection or drainage. NECK: Supple, trachea midline. No JVD or lymphadenopathy. CARDIOVASCULAR: Regular rate and rhythm without murmurs, gallops, or rubs. No CP ilcited on palpation. RESPIRATORY: Breath sounds equal bilaterally. No accessory muscle use. GASTROINTESTINAL: Abdomen soft, non-tender, nondistended. MUSCULOSKELETAL: No cyanosis, or edema. BACK: Nontender without obvious deformity. No CVA tenderness. NEURO: AAOx3, motor strength 5/5 Results - Labs CBC & Chem 7: 12/28/17 03:38 12/28/17 03:38 Laboratory Results - last 24 hr 12/27/17 12/27/17 12/28/17 07:32 07:35 03:38 WBC 9.8 RBC 4.29 L Hgb 13.8 Hct 40.5 MCV 94.4 MCH 32.2 MCHC 34.1 RDW 13.5 Plt Count 237 MPV 8.6 Neut % (Auto) 61.5 Lymph % (Auto) 26.4 [place] % (Auto) 9.1 H Eos % (Auto) 2.2 Baso % (Auto) 0.8 Neut # (Auto) 6.0 Lymph # (Auto) 2.6 [place] # (Auto) 0.9 Eos # (Auto) 0.2 Baso # (Auto) 0.1 WBC Differential . Differential Comment Auto diff final Sodium Potassium Chloride Carbon Dioxide Anion Gap BUN Creatinine Estimated GFR POC Glucose 100 Random Glucose Calcium Total Bilirubin AST ALT Alkaline Phosphatase Total Creatine Kinase 122 Troponin I Less than 0.02 L Total Protein Albumin 12/28/17 03:38 WBC RBC Hgb Hct MCV MCH MCHC RDW Plt Count MPV Neut % (Auto) Lymph % (Auto) [place] % (Auto) Eos % (Auto) Baso % (Auto) Neut # (Auto) Lymph # (Auto) [place] # (Auto) Eos # (Auto) Baso # (Auto) WBC Differential Differential Comment Sodium 142 Potassium 3.6 Chloride 110 H Carbon Dioxide 24.7 Anion Gap 7 BUN 13 Creatinine 0.94 Estimated GFR 82 L POC Glucose Random Glucose 93 Calcium 8.1 L D Total Bilirubin 0.4 AST 20 ALT 34 Alkaline Phosphatase 93 Total Creatine Kinase Troponin I Total Protein 6.3 L D Albumin 3.4 Assessment and Plan - Plan This is a 57-year-old CM with PMHx of CAD s/p stent placement x3/three-vessel bypass 02/2017, and an additional stent to 1 of the grafts on 04/2017 that presents to ED with complaints of chest pain. Sx also concerning for GERD but do to history admitted for IP mgmt of Chest Pain, HD#2 1. Chest pain/Hx of CAD CE Neg x3, EKG WNL Sx concerning for unstable angina Cardiology consulted, appreciate assistance with management Cont. home Metoprolol, Aspirin, and Brilinta 2. HTN Stable Cont. home BB and Norvasc Continue to monitor 3. Hyperlipidemia Continue home Statin, holding Repatha 4. Anxiety Continue home Sertraline 5. GERD Continue home PPI and Carafate as needed 6. DVT PPX: SCD's (patient on Brilinta to prevent arterial thromboembolism) 7. Former smoker x1wk Encouraged continued cessation 8. Hypocalcemia, resolved Calcium 8.1 this AM Calcium 7.2 on admission Status post replacement in ED 9. Hypoxia, 94% Likely secondary to chest pain, of note former as of 1wk ago Supplement oxygen as needed to keep O2 sats above 92% 10. Dispo: Await cardiology recommendations Code Status: full Discussed Condition With: patient Discharge Planning: pending Cards reccs
[2017-12-28] MEDS: amLODIPine 5 MG Tablet PO SCH (08:01)
[2017-12-28] MEDS: Senna/Docusate Sodium 8.6/50 MG Tablet PO SCH ×2 (08:01→20:30)
[2017-12-28] MEDS: Metoprolol Tartrate 25 MG Tablet PO SCH ×2 (08:01→20:30)
[2017-12-28] MEDS: Sertraline 50 MG Tablet PO SCH (08:02)
[2017-12-28] MEDS: Morphine Sulfate Inj 2 MG/ML Vial IV.PUSH PRN ×2 (09:29→13:21)
[2017-12-28] MEDS: Sucralfate Liq 1 GM/10 ML UDC PO PRN (13:21)
--- NOTE | 2017-12-28 14:37 | P.PN ---
Subjective Interval history: Chest pressure Physical Exam Vital signs: Vital Signs 12/27/17 17:51 12/27/17 18:31 12/27/17 19:00 Temperature 98.0 F 97.3 F L Pulse Rate 53 L 53 L 54 L Respiratory Rate 18 18 Blood Pressure 111/59 L 108/61 Pulse Oximetry 95 94 L 12/27/17 20:00 12/27/17 21:00 12/27/17 22:00 Temperature Pulse Rate 56 L 62 52 L Respiratory Rate Blood Pressure Pulse Oximetry 12/27/17 23:00 12/28/17 00:00 12/28/17 01:00 Temperature 97.8 F Pulse Rate 52 L 48 L 54 L Respiratory Rate 20 Blood Pressure 95/52 L Pulse Oximetry 93 L 12/28/17 01:32 12/28/17 02:00 12/28/17 03:00 Temperature 97.7 F Pulse Rate 48 L 54 L Respiratory Rate 18 18 Blood Pressure 96/69 L Pulse Oximetry 94 L 12/28/17 04:00 12/28/17 05:00 12/28/17 06:00 Temperature Pulse Rate 48 L 53 L 52 L Respiratory Rate Blood Pressure Pulse Oximetry 12/28/17 07:00 12/28/17 08:00 12/28/17 08:30 Temperature 97.5 F L Pulse Rate 55 L 53 L Respiratory Rate 18 Blood Pressure 107/61 Pulse Oximetry 94 L 93 L 12/28/17 08:33 12/28/17 09:00 12/28/17 09:35 Temperature Pulse Rate 51 L Respiratory Rate 18 16 Blood Pressure Pulse Oximetry 12/28/17 10:00 12/28/17 11:00 12/28/17 12:00 Temperature 97.7 F Pulse Rate 52 L 52 L 52 L Respiratory Rate 18 Blood Pressure 128/60 Pulse Oximetry 94 L 12/28/17 12:53 12/28/17 13:28 12/28/17 13:50 Temperature Pulse Rate 55 L 56 L Respiratory Rate 18 Blood Pressure Pulse Oximetry Intake & Output 12/27/17 12/28/17 12/28/17 18:59 06:59 18:59 Intake Total 0 / 0 240 / 240 Balance 0 / 0 240 / 240 Weight 83 kg Intake: IV 0 / 0 D5W/1/2 NS Inj 1,000 ML @ 200 0 / 0 mls/hr IV.CONT .Q5H [facility] Rx#: [id number] Oral 240 / 240 Other: # Voids 2 - Constitutional no acute distress - Routine HEENT Exam Head: Present: normocephalic Eye: Present: PERRL ENT: Present: mucous membranes moist - Routine Respiratory Exam Present: CTA bilaterally - Routine Cardiovascular Exam Present: RRR, S1, S2 - Routine Abdominal Exam Present: soft - Routine Neurological Exam Present: alert, oriented X3 Results - Labs CBC & Chem 7: 12/28/17 03:38 12/28/17 03:38 Laboratory Results - last 24 hr 12/28/17 12/28/17 03:38 03:38 WBC 9.8 RBC 4.29 L Hgb 13.8 Hct 40.5 MCV 94.4 MCH 32.2 MCHC 34.1 RDW 13.5 Plt Count 237 MPV 8.6 Neut % (Auto) 61.5 Lymph % (Auto) 26.4 [place] % (Auto) 9.1 H Eos % (Auto) 2.2 Baso % (Auto) 0.8 Neut # (Auto) 6.0 Lymph # (Auto) 2.6 [place] # (Auto) 0.9 Eos # (Auto) 0.2 Baso # (Auto) 0.1 WBC Differential . Differential Comment Auto diff final Sodium 142 Potassium 3.6 Chloride 110 H Carbon Dioxide 24.7 Anion Gap 7 BUN 13 Creatinine 0.94 Estimated GFR 82 L Random Glucose 93 Calcium 8.1 L D Total Bilirubin 0.4 AST 20 ALT 34 Alkaline Phosphatase 93 Total Protein 6.3 L D Albumin 3.4 Assessment and Plan - Assessment (1) Unstable angina pectoris Code(s): I20.0 - Unstable angina Status: Acute Plan: patient is experiencing chest pain since this morning. Nitro IV initiated May need a [facility] Call placed to Dr Forbes Will wait for further decision. case discussed with patient and his (2) Hypertension Code(s): I10 - Essential (primary) hypertension Status: Acute Plan: SBP 120
[2017-12-28] MEDS ORDERED: Nitroglycerin Drip Premix 50 MG/250 ML BOTTLE IV.CONT PRN (14:40)
[2017-12-28] MEDS ORDERED: Heparin Drip 25,000 UNIT/250 ML BAG IV.CONT PRN (14:44)
[2017-12-28] MEDS ORDERED: Morphine Sulfate Inj 2 MG/ML Vial IV.PUSH PRN (15:07)
[2017-12-28] MEDS: Morphine Inj 4 MG/ML Vial IV.PUSH PRN ×4 (15:12→22:56)
[2017-12-28 15:48] LABS: Activated Partial Thrombo Time 25.9 sec (24.3-30.1); Prothrombin Time 10.4 sec (9.8-11.6)
[2017-12-28] MEDS ORDERED: TIROFIBAN BOLUS IV.PUSH ONE (16:00)
[2017-12-28] MEDS: Tirofiban Inj 12,500 MCG/250 ML PLAST..BAG IV.CONT SCH (17:18)
[2017-12-28] MEDS ORDERED: Heparin 10,000 UNITS/10 ML Vial (for IV use) IV.PUSH PRN (23:14)
[2017-12-28] MEDS: Heparin 10,000 UNITS/10 ML Vial (for IV use) IV.PUSH PRN (23:21)
[2017-12-29] MEDS ORDERED: Iohexol 350 MG/ML 100 ML Vial (for Cath Lab) IVCONTRAST ONE (01:51)
[2017-12-29] MEDS: Morphine Inj 4 MG/ML Vial IV.PUSH PRN ×4 (04:24→13:31)
[2017-12-29] MEDS: Sucralfate Liq 1 GM/10 ML UDC PO PRN (04:25)
[2017-12-29] MEDS ORDERED: Aluminum/Magnesium/Simethacone Susp 30 ML UDC PO ONE (04:37)
[2017-12-29] MEDS ORDERED: Sodium Chloride 0.9% 2 ML Flush PRN IV.FLUSH (04:39)
[2017-12-29 06:05] LABS: Alanine Aminotransferase 33 U/L (12-78); Albumin 3.6 g/dL (3.4-5.0); Anion Gap 7 meq/L (5-15); Aspartate Aminotransferase 18 U/L (15-37); Blood Urea Nitrogen 14 mg/dL (7-18); Calcium 8.2 mg/dL (8.5-10.1); Carbon Dioxide 28.2 meq/L (21.0-32.0); Chloride 107 meq/L (98-107); Glomerular Filtration Rate 80 mL/min (>89); Glucose,Random 106 mg/dL (74-106); Potassium 3.8 meq/L (3.5-5.1); Sodium 142 meq/L (136-145)
[2017-12-29 06:08] LABS: Alkaline Phosphatase 91 U/L (45-117); Total Protein 6.5 g/dL (6.4-8.2)
[2017-12-29] MEDS: Heparin 10,000 UNITS/10 ML Vial (for IV use) IV.PUSH PRN (06:16)
[2017-12-29] MEDS ORDERED: diazePAM 5 MG Tablet PO SCH (08:00)
[2017-12-29] MEDS: amLODIPine 5 MG Tablet PO SCH (08:37)
[2017-12-29] MEDS: Sertraline 50 MG Tablet PO SCH (08:37)
[2017-12-29] MEDS: Metoprolol Tartrate 25 MG Tablet PO SCH ×2 (08:37→21:09)
[2017-12-29] MEDS: Senna/Docusate Sodium 8.6/50 MG Tablet PO SCH ×2 (08:38→21:09)
[2017-12-29] MEDS: Sodium Chloride 0.9% 2 ML Flush BID IV.FLUSH SCH ×2 (08:38→21:10)
[2017-12-29] MEDS: Sod Chloride 0.9% Inj 1,000 ML IV.CONT SCH ×2 (08:40→17:35)
[2017-12-29 09:19] VITALS: RESP 16
[2017-12-29] MEDS: Acetaminophen 500 MG Tablet PO PRN (10:15)
[2017-12-29] MEDS ORDERED: Heparin/NS PF Inj 1,000 ML ONE (10:19)
[2017-12-29] MEDS ORDERED: fentaNYL Citrate Inj 100 MCG/2 ML Ampul ONE (10:19)
--- NOTE | 2017-12-29 10:27 | ECG ---
Date Performed: 12/28/2017 Time Performed: 15:04:04 PTAGE: 57 years EKG: Sinus bradycardia Possible septal infarct - age undetermined Abnormal ECG Since the PREVIOUS TRACING , no significant change noted PREVIOUS TRACIN12/27/2017 07.46 DOCTOR: Kathrin Espinosa Interpretating Date/Time 12/29/2017 10:23:49
[2017-12-29] MEDS ORDERED: Tirofiban Inj 12,500 MCG/250 ML PLAST..BAG ONE (10:35)
[2017-12-29] MEDS: Tirofiban Inj 12,500 MCG/250 ML PLAST..BAG IV.CONT SCH (10:40)
[2017-12-29] MEDS ORDERED: Heparin 10,000 UNITS/10 ML Vial (for IV use) ONE (10:43)
--- NOTE | 2017-12-29 12:57 | CATHPROC ---
[employer] HIS Report Study Information Study Number Admission Scheduled Start Study Start [id number] 12/27/2017 12/29/2017 Dec 29 2017 10:33AM [place] Service Cath Endovascular Study Referring Institution Admit Source Facility Department 1 Emergency department [facility] - Supervisor Paper Coating Physician and Clinical Staff Initial MD Cobb, Nigel Kolb RN, Kendra John RN Other cathlab, cathlab Recorder Gunner Prado RCIS(BS) Breanna Fam RCIS TECH2 Procedures Performed Procedure Location (Site) Vessel Name Angiogram LV Asc. Aorta (A) Coronary Angiograms LCA Left Coronary Coronary Angiograms PIERRE-LAD Left Coronary Coronary Angiograms SVG-OM CIRC Coronary Angiograms SVG-PDA Right Coronary Drug Eluting Inflatio LAD Mid Left Coronary L Heart Cath Wire insertion Radial (left) Radial Art. Equipment Time Informatics Physician Description Size Mfg Part Number Used/Scraped TRANSDUCER, TRUWAVE [id number] 10:38 FRANKS COSTA * Used W/STOCKCOCK *[id number] 534-545T *[id number] 534-548T *[id number] IM VB1 SUPER TORQUE 532-662 CATHETER *[id number] 534-542T *[id number] WIRE, HYDROSTEER 150CM [id number] 11:11 DAIG/[employer]. [employer] 150CM Used ANGLED GLIDE *[id number] 10:38 MALLINCKRODT SYRINGE, ANGIOMAT 150ML 150ML *[id number] Used 2SUB [id number] 10:38 [employer] BLANKET,WARM AIR CCL * Used *[id number] 10:38 [employer] PACK, CCL CUSTOM * Used *[id number] 10:38 [employer] SUPPORT, ARTERIAL ADULT 10621 *[id number] Used [id number] 10:38 [employer] PACER PEN, SKIN DUAL W/ RULER * Used *[id number] 11:03 MEDTRONIC IM DXTERITY CATHETER FR 5 Used *[id number] PIG ANG 145 DXTERITY [id number] 11:37 [employer]TRONIC FR 5 Used CATHETER *[id number] 12:33 MEDTRONIC STENT, 2.75 18MM GRAZYNA 2.75 18MM Used *[id number] [id number] 12:38 MEDTRONIC STENT, 2.75 22MM GRAZYNA 2.75 22MM Used *[id number] [id number] 12:39 [employer] 30 MADISON INDEFLATOR Used *[id number] BAND, RADIAL COMPRESSION TR [id number] 12:44 [employer] MEDICAL 24CM Used SHORT 24 *[id number] [id number] 10:38 [employer] WIRE, EXCHANGE 260CM 3MMJ 260CM Used *[id number] [id number] 10:38 NAMIC MANIFOLD, 4 PORT * Used *1836652 [id number] 11:38 NAMIC TUBING, HIGH PRESSURE 48" 48" Used *[id number] 10:38 [employer]COMED OMNIPAQUE, 350 MG, 100ML 100ML [id number] Used 11:44 NYCOMED OMNIPAQUE, 350 MG, 150ML 150ML [id number] Used 11:41 NYCOMED OMNIPAQUE, 350 MG, 50ML 50ML [id number] Used 10:38 [employer]-nexus JELCO NEEDLE 4056 *2998590 Used SHEATH, FR6 TRANSRADIAL 80-1060 10:38 [employer] FR 6 Used SLENDER 10CM *[id number] WIRE, RUNTHROUGH NS FLOPPY [id number] 12:18 [employer] MEDICAL 180CM Used .014 180CM *[id number] Equipment Model, Serial, Lot Number and Expiration Data Description Model Number Serial Number Lot Number Expiration Date IM DXTERITY CATHETER [id number] 01-03-2020 PIG ANG 145 DXTERITY CATHETER [id number] 07-17-2019 STENT, 2.75 18MM GRAZYNA [id number] 04-19-2019 STENT, 2.75 22MM GRAZYNA [id number] 05-27-2019 WIRE, HYDROSTEER 150CM [id number] 08-21-2020 ANGLED GLIDE History: Current Medications Medication Dosage/Unit Route Frequency Last Date/Time Taken Beta Aliyah BRILLINTA History: Allergies Allergy Reaction Sulfa (Sulfonamide Antibiotics) Drowsiness penicillin V Arrhythmias History: Risk Factors Family History of Hypertension Dyslipidemia Previous IA Previous Heart Failure Premature CAD Yes Yes No Yes No Prior Valve Prior PCI Prior PCIDate Prior CABG Prior CABGDate Surgery No Yes 04/24/2017 Yes 02/21/2017 Cerebrovascular Peripheral Artery Chronic Lung On Dialysis Diabetes Disease Disease Disease No No No Yes No History: Symptoms/Diagnosis Selection Items Chest pain History: Stress Tests Stress or Imaging Studies Performed No History: Other Disease Selection Items CAD HTN History: IA/CV Data Previous Cath Date Previous CABG Date 04/24/2017 02/21/2017 History: Other Method Packs a Day Years Used Pack Years Cigarettes 1 50 50 Labs Hgb (g/dl) Hct (%) WBC (l/cumm) Platelets (thousands) 11.60-17.00 35.00-51.00 4.00-11.00 150.00-450.00 13.8 40.5 9.8 237 Glucose (mg/dl) BUN (mg/dl) Creatinine (mg/dl) BUN:Creatinine (1:x) 74.00-106.00 7.00-18.00 0.50-1.30 10.00-20.00 106 14 0.9 15.6 Na (meq/l) K (meq/l) 136.00-145.00 3.50-5.10 142 3.8 INR (PTT:PT) 0.90-1.10 1 Troponin I (ng/ml) CPK-MB (ng/ML) 0.02-0.05 0.50-3.60 0.02 Not Drawn Medication Medication Total Dose (Bolus/Oral) Medication Total Dosage/Unit 1% XYLOCAINE 2 mL FENTANYL 25 mcg HEPARIN 5000 units NTG (IC) 100 mcg RADIAL COCKTAIL 5 mL (Bolus) VERSED 2 mg Medications (Bolus/Oral) Medication Time Given Dosage/Unit Administered By Reason VERSED 12/29/2017 10:58:31 AM 1 mg Kendra Light 1 mg VERSED given in lab by Kendra Light, BERENICE in Right Hand via Peripheral IV. Ordered by Emily Cobb. FENTANYL 12/29/2017 10:59:45 AM 25 mcg Kendra Light 25 mcg FENTANYL given in lab by Kendra Light, RN in Right Hand via Peripheral IV. Ordered by Nigel Salazar. 1% XYLOCAINE 12/29/2017 10:59:54 AM 2 mL Nigel Cobb 2 mL 1% XYLOCAINE given in lab by Nigel Cobb in Left Radial via Subcutaneous. VERSED 12/29/2017 11:01:20 AM 1 mg Warren Kolb RN 1 mg VERSED given in lab by Warren Kolb RN in Right Hand via Peripheral IV. Ordered by Nigel Cobb . Ntg 300mcg Verapamil 2.5mg Heparin RADIAL COCKTAIL 12/29/2017 11:07:59 AM 5 mL (Bolus) Nigel Cobb 2500U 5 mL (Bolus) RADIAL COCKTAIL given in lab by Nigel Cobb in Left Radial via Radial. Using [Solution Name]. Reason: Ntg 300mcg Verapamil 2.5mg Heparin 2500U. HEPARIN 12/29/2017 12:17:57 PM 5000 units Kendra Light 5000 units HEPARIN given in lab by Kendra Light, BERENICE in Right Hand via Peripheral IV. Ordered by Nigel Ochoa. NTG (IC) 12/29/2017 12:30:51 PM 100 mcg Breanna Hernandez 100 mcg NTG (IC) given in lab by Breanna Hernandez RCIS TECHTom via Intra-coronary. Ordered by Elaine Cobb Medication (Drip) Medication Time Given Dosage/Unit Concentration/Unit Diluent (ml) Solution AGGRASTAT DRIP 12/29/2017 10:33:06 AM 1.525 mcg/kg/min 12.5 mg 250 NaCl .9 Patient arrived on 1.525 mcg/kg/min AGGRASTAT DRIP in Right Antecubital via Peripheral IV. Pump/Drip Flow = 149 ml/hr using NaCl .9 with a concentration of 12.5 mg in 250 ml. IV Solutions 12/29/2017 10:33:10 AM 0 mL (IV) 500 NaCl .9 IV Solutions given in lab by Warren Kolb RN in Right Hand via Peripheral IV. Pump/Drip Flow = 20 ml/ hr using NaCl .9. Ordered by Nigel Cobb. Initial Case Assessment Cardiovascular HR Rhythm NIBP Chest Pain 53 sbrady 110/73 0 Edema Present Skin color Skin None Normal Warm Dry Circulatory - Right Pulses Dorsalis Pedis Femoral 2 2 Scale (0,1,2,3,4,d) Circulatory - Left Pulses Dorsalis Pedis Femoral 2 2 Scale (0,1,2,3,4,d) Neurological State Oriented to time-place- Alert Moves all extremities person Respiration - General Respiration Rate SpO2 (%) (B/min) 15 95 Final Case Assessment Cardiovascular HR Rhythm NIBP Chest Pain 53 sbrady 100/30 0 Edema Present Skin color Skin None Normal Warm Dry Circulatory - Right Pulses Dorsalis Pedis Femoral 2 2 Scale (0,1,2,3,4,d) Circulatory - Left Pulses Dorsalis Pedis Femoral 2 2 Scale (0,1,2,3,4,d) Neurological State Oriented to time-place- Alert Moves all extremities person Respiration - General Respiration Rate SpO2 (%) (B/min) 15 95 Chronological Log Time Study Chronological Log 10:32:50 Patient arrived via Bed. Heparin Drip DCed upon pickup per MD. 10:32:51 Patient Name, D.O.B, / Armband Verified By R.N. 10:32:51 Consent signed by the physician and the patient and verified by the Supervisor Paper Coating staff. 10:32:52 Pre-op and post- op instructions given; patient acknowledges understanding of instructions. 10:32:53 Presedation assessment performed by Supervisor Paper Coating RN. 10:32:55 Allens test performed on the left radial and ulnar artery. 10:32:56 Immediate Presedation assesment performed by physician. 10:32:56 Patient has been NPO for More than 6Hrs. 10:32:57 Skin Breakdown- none per patient 10:32:57 Patient Warmer Placed on the Table. 10:32:58 Arian Prominences Protected 10:32:58 A # 20 IV was noted in the Antecubital (right). Grade = 0 10:33:05 A # 20 IV was noted in the Hand (right). Grade = 0 Patient arrived on 1.525 mcg/kg/min AGGRASTAT DRIP in Right Antecubital via Peripheral IV. Pump /Drip Flow = 149 10:33:06 ml/hr using NaCl .9 with a concentration of 12.5 mg in 250 ml. IV Solutions given in lab by Warren Kolb RN in Right Hand via Peripheral IV. Pump/Drip Flow = 20 ml/hr using NaCl .9. 10:33:10 Ordered by Nigel Cobb. 10:33:10 History and physical on the chart or being dictated. Vitals capture started with the following parameters, Patient=Adult, Interval=5 min, Initial Pr effkhr=258 mmHg, 10:39:42 Deflation Rate=5 mmHg, Cuff placed on Left Arm Assessment: Initial Case, HR=53 BPM, Rhythm=sbrady, CMGS=893/73 mmhg, Chest Pain=0, Edema=None, Color=Normal, Skin = Warm, Dry Right Pulses: Malik Ped=2, Femoral=2 10:39:45 Left Pulses: Malik Ped=2, Femoral=2, Radial=2 Neurological: State=Alert, Ox3, STEINER Respiration: Resp=15 B/min, SpO2=95 % 10:40:00 MD arrived. 10:40:05 Reference ECG taken Vitals capture started with the following parameters, Patient=Adult, Interval=5 min, Initial Pr hcffmo=620 mmHg, 10:43:41 Deflation Rate=5 mmHg, Cuff placed on Left Arm 10:44:16 HR=52 bpm, JPLM=695/73 mmhg, SpO2=92 %, Resp=18 B/min, Pain=0, Martha=10, Wick=2 10:46:40 Left radial and groin(s) prepped with 2% chlorhexidine, and draped after a 3 min. waiting t nickolas. 10:46:46 Contrast Scanned 10:46:47 Immediate Presedation assesment performed by physician. 10:49:46 HR=54 bpm, EOWK=886/71 mmhg, SpO2=94.0 %, Resp=11 B/min, Pain=0, Martha=10, Wick=2 10:54:18 HR=51 bpm, MJMQ=771/70 mmhg, SpO2=96.0 %, Resp=20 B/min, Pain=0, Martha=10, Wick=2 Time Out. Correct patient, correct procedure, correct physician, labs, allergies, and equipment verified with laborer demolition 10:58:29 team present. Fire risk assesment completed (see hard stop sheet for coding). Time Out Conc urred by MD and individual staff in procedure. 10:58:31 1 mg VERSED given in lab by Kendra Light, BERENICE in Right Hand via Peripheral IV. Ordered by Nigel Cobb. 10:59:45 25 mcg FENTANYL given in lab by Kendra Light, BERENICE in Right Hand via Peripheral IV. Ordere d by Nigel Cobb. 10:59:52 HR=52 bpm, WCRX=586/65 mmhg, SpO2=94.0 %, Resp=26 B/min 10:59:53 Case Start 10:59:54 2 mL 1% XYLOCAINE given in lab by Nigel Cobb in Left Radial via Subcutaneous. 11:00:40 Pressure channel 1 zeroed. 11:01:20 1 mg VERSED given in lab by Warren Kolb RN in Right Hand via Peripheral IV. Ordered by Nigel Edge. 11:04:18 HR=51 bpm, DUAG=479/66 mmhg, SpO2=88.0 %, Resp=13 B/min, Pain=0, Martha=10, Wick=2 11:07:44 Access site was Left Radial Artery. A SHEATH, FR6 TRANSRADIAL SLENDER 10CM FR 6 was advanced into the Radial (left) using the Tyree alejandro 11::51 technique. 5 mL (Bolus) RADIAL COCKTAIL given in lab by Nigel Cobb in Left Radial via Radial. Using [So lution Name]. Reason: 11:07:59 Ntg 300mcg Verapamil 2.5mg Heparin 2500U. 11:09:24 HR=55 bpm, NIBP=80/48 mmhg, SpO2=91 %, Resp=8 B/min, Pain=0, Martha=10, Wick=2 A IM DXTERITY CATHETER FR 5 was advanced over a wire. OMNIPAQUE, 350 MG, 100ML 100ML was used f or 11:09:53 injections. 11:10:30 A WIRE, HYDROSTEER 150CM ANGLED GLIDE 150CM was inserted via Radial (left). 11:14:39 The previous wire was exchanged for a WIRE, EXCHANGE 260CM 3MMJ 260CM. 11:14:57 HR=51 bpm, AMXC=737/61 mmhg, SpO2=90.0 %, Resp=11 B/min, Pain=0, Martha=10, Wick=2 11:15:58 Wire removed 11:17:54 The PIERRE-LAD was injected and visualized at various angles. OMNIPAQUE, 350 MG, 100ML 100ML used. 11:19:20 HR=54 bpm, BMLU=294/70 mmhg, SpO2=92.0 %, Resp=10 B/min, Pain=0, Martha=10, Wick=2 After removing the current catheter a AL 1 INFINITI CATHETER FR 5 was advanced over a WIRE, EXC HANGE 260CM 11:21:59 3MMJ 260CM. 11:24:21 HR=50 bpm, VCUT=030/68 mmhg, SpO2=93.0 %, Resp=16 B/min, Pain=0, Martha=10, Wick=2 11:24:49 The LCA was injected and visualized at various angles. OMNIPAQUE, 350 MG, 100ML 100ML used . 11:29:26 HR=61 bpm, EHPK=615/59 mmhg, SpO2=93.0 %, Resp=15 B/min, Pain=0, Martha=10, Wick=2 11:30:45 The SVG-OM was injected and visualized at various angles. OMNIPAQUE, 350 MG, 100ML 100ML us ed. 11:34:23 HR=58 bpm, KKNX=750/63 mmhg, SpO2=90.0 %, Resp=9 B/min, Pain=0, Martha=10, Wick=2 After removing the current catheter a PIG ANG 145 DXTERITY CATHETER FR 5 was advanced over a WI RE, EXCHANGE 11:37:11 260CM 3MMJ 260CM. 11:39:26 HR=52 bpm, GVTM=742/60 mmhg, SpO2=91.0 %, Resp=12 B/min, Pain=0, Martha=10, Wick=2 11:40:23 The Asc. Aorta (A) was injected at 20 cc/sec for a total of 40. OMNIPAQUE, 350 MG, 50ML 50M L used. 11:44:27 HR=55 bpm, NIBP=90/60 mmhg, SpO2=94.0 %, Resp=10 B/min, Pain=0, Martha=10, Wick=2 After removing the current catheter a AL 1 INFINITI CATHETER FR 5 was advanced over a WIRE, EXC HANGE 260CM 11:46:26 3MMJ 260CM. 11:49:20 HR=53 bpm, PKAW=332/65 mmhg, SpO2=94.0 %, Resp=9 B/min, Pain=0, Martha=10, Wick=2 Recorded Pressure: Ao, HR=54, Condition=Condition 1 11:49:24 (Aorta) Ao 94/55/73 11:54:27 HR=54 bpm, NIBP=98/58 mmhg, SpO2=93.0 %, Resp=12 B/min, Pain=0, Martha=10, Wick=2 After removing the current catheter a MPA-2 INFINITI CATHETER FR 5 was advanced over a WIRE, EX CHANGE 260CM 11:57:10 3MMJ 260CM. 11:59:24 HR=54 bpm, NIBP=94/56 mmhg, SpO2=95.0 %, Resp=15 B/min 12:04:00 A WIRE, EXCHANGE 260CM 3MMJ 260CM was inserted via Radial (left). 12:04:24 Wire removed 12:04:25 HR=53 bpm, NIBP=95/55 mmhg, SpO2=95 %, Resp=20 B/min 12:04:55 The SVG-PDA was injected and visualized at various angles. OMNIPAQUE, 350 MG, 150ML 150ML u sed. 12:07:44 Catheter was removed 12:09:22 HR=55 bpm, PLCF=410/68 mmhg, SpO2=97 %, Resp=12 B/min 12:14:25 HR=56 bpm, CXLR=926/68 mmhg, SpO2=96.0 %, Resp=15 B/min 12:17:57 5000 units HEPARIN given in lab by Kendra Light, RN in Right Hand via Peripheral IV. Ord ered by Nigel Cobb. After removing the current catheter a IM VB1 SUPER TORQUE CATHETER FR 6 was advanced over a WIR E, EXCHANGE 12:19:11 260CM 3MMJ 260CM. 12:19:26 HR=50 bpm, URIM=034/68 mmhg, SpO2=94 %, Resp=13 B/min, Pain=0, Martha=10, Wick=2 12:24:32 HR=53 bpm, LQPV=077/56 mmhg, SpO2=94.0 %, Resp=17 B/min, Pain=0, Martha=10, Wick=2 12:26:02 Activated Clotting Time Drawn 12:26:37 A WIRE, RUNTHROUGH NS FLOPPY .014 180CM 180CM was inserted via Radial (left). 12:29:26 HR=50 bpm, JFWT=122/63 mmhg, SpO2=96 %, Resp=15 B/min, Pain=0, Martha=10, Wick=2 12:30:32 ACT (Normal Range 90-180) = 342 12:30:51 100 mcg NTG (IC) given in lab by Breanna Hernandez RCIS TECHTom via Intra-coronary. Ordered by Nigel Ochoa. 12:31:11 Interventional wire has crossed the lesion A STENT, 2.75 18MM GRAZYNA 2.75 18MM was advanced through a IM VB1 SUPER TORQUE CATHETER FR 6 over a WIRE, 12:32:39 RUNTHROUGH NS FLOPPY .014 180CM 180CM. 12:34:30 HR=51 bpm, FOIR=164/62 mmhg, SpO2=92.0 %, Resp=16 B/min, Pain=0, Martha=10, Wick=2 12:36:38 Stent not deployed. Stent removed and intact. A STENT, 2.75 22MM GRAZYNA 2.75 22MM was advanced through a IM VB1 SUPER TORQUE CATHETER FR 6 over a WIRE, 12:36:45 RUNTHROUGH NS FLOPPY .014 180CM 180CM. A STENT, 2.75 22MM GRAZYNA 2.75 22MM was deployed using a 30 [place] INDEFLATOR at 12 atmospheres for 30 seconds 12:38:55 in the LAD Mid. 12:39:29 HR=52 bpm, XSZW=711/60 mmhg, SpO2=94.0 %, Resp=19 B/min, Pain=0, Martha=10, Wick=2 12:39:32 Delivery device removed 12:42:15 Wire removed 12:42:52 Catheter was removed 12:42:55 Case End (Physician broke scrub) Assessment: Final Case, HR=53 BPM, Rhythm=sbrady, FDGS=970/30 mmhg, Chest Pain=0, Edema=None, Color=Normal, Skin = Warm, Dry Right Pulses: Malik Ped=2, Femoral=2 12:43:25 Left Pulses: Malik Ped=2, Femoral=2, Radial=2 Neurological: State=Alert, Ox3, STEINER Respiration: Resp=15 B/min, SpO2=95 % 12:43:34 Catheter(s) removed without difficulty Radial Compression Device Used. 11 mLs of air placed in BAND, RADIAL COMPRESSION TR SHORT 24 2 4CM. Affected 12:43:35 hand 96 % O2 saturation. 12:43:43 Sterile dressing applied to site 12:43:44 No case complications noted. 12:43:45 Cine recording checked. 12:43:47 Bedside Report will be given. 12:43:48 Implantable Device card placed in patient's chart. 12:43:51 A Left Heart Cath was performed. 12:44:28 HR=53 bpm, VCZD=816/62 mmhg, SpO2=96.0 %, Resp=19 B/min, Pain=0, Martha=10, Wick=2 12:49:27 HR=49 bpm, WXPC=782/68 mmhg, SpO2=94.0 %, Resp=16 B/min, Pain=0, Martha=10, Wick=2 12:51:00 --If Yes - Type of CABG Graft - PIERRE (for CathPCI v5) 12:54:17 Vitals capture stopped. 12:55:36 Patient moved to stretcher End Study - Contrast Media Used In Study Contrast Total Opened (mL) Total Used (mL) Total Wasted (mL) Omnipaque 270 270 0 End Study - Maximum Contrast Load Max Contrast Load (mL) 452.0 End Study - Radiation Exposure Fluoro Time (minutes) 36.7 End Study - Patient Disposition Complications Transferred To Interventional Outcome No Telemetry Bed successful
--- NOTE | 2017-12-29 13:29 | P.PN ---
Subjective Interval history: This is a pleasant 57 y/o Male with CAD status post Stent placement x 3, status post CABG 02/2017, and additional stent placement to 1 graft 04/2017, came to ER with chest pain, seen by veterinary milk specialist with Diagnosis of Unstable Angina Pectoris, recommended for Nitroglycerine IV, seen in his bedroom status post Left heart cath, performed by doctor Nigel Cobb with result Multivessel Coronary Artery disease, the left main disease does not appear to be as severe as it was on his prebypass catheterization. There is severe stenosis of the left anterior descending distal to the mid internal mammary bypass. The two vein grafts were patent, but the vein graft to the posterolateral branch provides essentially no antegrade flow, Successful stenting of the mid left anterior descending utilizing a drug-eluting stent. Continue Aspirin, Brilinta. Physical Exam Vital signs: Vital Signs 12/28/17 13:28 12/28/17 13:50 12/28/17 15:00 Temperature 98.0 F Pulse Rate 56 L 54 L Respiratory Rate 18 18 Blood Pressure 118/67 Pulse Oximetry 95 12/28/17 15:20 12/28/17 15:56 12/28/17 16:22 Temperature Pulse Rate 51 L 55 L Respiratory Rate 14 Blood Pressure Pulse Oximetry 12/28/17 17:36 12/28/17 18:20 12/28/17 19:00 Temperature 97.6 F Pulse Rate 53 L 57 L Respiratory Rate 18 18 Blood Pressure 113/64 Pulse Oximetry 93 L 12/28/17 20:00 12/28/17 20:57 12/28/17 21:00 Temperature Pulse Rate 52 L 54 L Respiratory Rate 20 Blood Pressure Pulse Oximetry 12/28/17 22:00 12/28/17 23:00 12/29/17 00:00 Temperature 97.8 F Pulse Rate 52 L 56 L 58 L Respiratory Rate 18 Blood Pressure 125/63 Pulse Oximetry 91 L 12/29/17 01:00 12/29/17 02:00 12/29/17 03:00 Temperature 97.4 F L Pulse Rate 52 L 52 L 50 L Respiratory Rate 20 Blood Pressure 117/59 L Pulse Oximetry 94 L 12/29/17 04:00 12/29/17 05:00 12/29/17 06:00 Temperature Pulse Rate 50 L 48 L 49 L Respiratory Rate Blood Pressure Pulse Oximetry 12/29/17 06:47 12/29/17 07:00 12/29/17 08:00 Temperature 97.7 F Pulse Rate 56 L 50 L Respiratory Rate 18 16 Blood Pressure 118/65 Pulse Oximetry 93 L 12/29/17 09:00 12/29/17 10:00 12/29/17 13:00 Temperature Pulse Rate 49 L 51 L 48 L Respiratory Rate Blood Pressure Pulse Oximetry Intake & Output 12/28/17 12/29/17 12/29/17 18:59 06:59 18:59 Intake Total 521.5 / 521.5 590 / 590 760 / 760 Output Total 300 / 300 Balance 521.5 / 521.5 290 / 290 760 / 760 Weight 81.5 kg Intake: IV 41.5 / 41.5 260 / 260 Heparin/NS PF Inj 1,000 ML @ 0 10 / 10 mls/hr .ROUTE .STK-MED ONE Rx#: [id number] Aggrastat Inj 12,500 mcg In 250 250 / 250 ml @ Per Protocol IV.CONT .Q0M [facility] Rx#:[id number] Aggrastat Bolus 2,075 MCG In 41.5 / 41.5 Bag/Syringe 1 EACH @ 498 mls/hr IV.PUSH ONCE ONE Rx#:[id number] Oral 480 / 480 590 / 590 Anesthesia Amount 500 / 500 Output: Urine 300 / 300 Other: # Voids 2 Narrative: GENERAL: This is a well-nourished, well-developed patient, in no apparent distress. CARDIOVASCULAR: Regular rate and rhythm without murmurs, gallops, or rubs. RESPIRATORY: Clear to auscultation. Breath sounds equal bilaterally. No wheezes , rales, or rhonchi. GASTROINTESTINAL: Abdomen soft, non-tender, nondistended. Normal active bowel sounds MUSCULOSKELETAL: Extremities without clubbing, cyanosis, or edema. NEURO: Alert & Oriented x4 to person, place, time, situation. Moves all ext x4 Results - Labs CBC & Chem 7: 12/29/17 13:35 12/29/17 05:15 Laboratory Results - last 24 hr 12/28/17 12/28/17 12/29/17 14:55 21:54 05:15 PT 10.4 INR 1.0 APTT 25.9 32.5 H D Sodium 142 Potassium 3.8 Chloride 107 Carbon Dioxide 28.2 Anion Gap 7 BUN 14 Creatinine 0.96 Estimated GFR 80 L Random Glucose 106 Calcium 8.2 L Total Bilirubin 0.5 AST 18 ALT 33 Alkaline Phosphatase 91 Total Protein 6.5 Albumin 3.6 12/29/17 05:15 PT INR APTT 38.4 H Sodium Potassium Chloride Carbon Dioxide Anion Gap BUN Creatinine Estimated GFR Random Glucose Calcium Total Bilirubin AST ALT Alkaline Phosphatase Total Protein Albumin Assessment and Plan - Plan This is a 57-year-old CM with PMHx of CAD s/p stent placement x3/three-vessel bypass 02/2017, and an additional stent to 1 of the grafts on 04/2017 that presents to ED with complaints of chest pain. Sx also concerning for GERD but do to history admitted for IP mgmt of Chest Pain, HD#2 1. Unstable Angina Status post Left heart cath, performed by doctor Nigel Cobb with result Multivessel Coronary Artery disease, the left main disease does not appear to be as severe as it was on his prebypass catheterization. There is severe stenosis of the left anterior descending distal to the mid internal mammary bypass. The two vein grafts were patent, but the vein graft to the posterolateral branch provides essentially no antegrade flow, Successful stenting of the mid left anterior descending utilizing a drug-eluting stent. Continue Aspirin, Brilinta. 2. HTN controlled continue home medicines. 3. Hyperlipidemia Continue home Statin, holding Repatha 4. Anxiety Continue home Sertraline 5. GERD Continue home PPI and Carafate as needed 6. DVT PPX: SCD's (patient on Brilinta to prevent arterial thromboembolism) 7. Former smoker x1wk Encouraged continued cessation 8. Hypocalcemia, resolved Calcium 8.1 this AM Calcium 7.2 on admission Status post replacement in ED 9. Hypoxia, 94% Likely secondary to chest pain, of note former as of 1wk ago Supplement oxygen as needed to keep O2 sats above 92% Code Status: Full code. Discussed Condition With: Patient, his and Daughter in the room also with nurse Miss Jackson. Discharge Planning: discharge home tomorrow.
[2017-12-29 14:05] LABS: Baso # (Auto) 0.1 th/mm3 (0.0-0.2); Baso % (Auto) 0.8 % (0.0-2.0); Eos # (Auto) 0.3 th/mm3 (0.0-0.4); Eos % (Auto) 2.4 % (0.0-4.0); Hematocrit 41.5 % (39.0-51.0); Hemoglobin 13.9 gm/dL (13.0-17.0); Lymph # (Auto) 3.1 th/mm3 (1.0-4.8); Lymph % (Auto) 27.3 % (9.0-44.0); Mean Corpuscular HGB Conc 33.5 % (32.0-36.0); Mean Corpuscular Volume 95.5 fL (80.0-100.0); Mean Platelet Volume 8.4 fL (7.0-11.0); Mono # (Auto) 0.9 th/mm3 (0.0-0.9); Mono % (Auto) 8.4 % (0.0-8.0); Neut # (Auto) 6.9 th/mm3 (1.8-7.7); Neut % (Auto) 61.1 % (16.0-70.0); Platelet Count 238 th/mm3 (150-450); Red Blood Count 4.34 mil/mm3 (4.50-5.90); Red Cell Distribution Width 13.4 % (11.6-17.2); White Blood Count 11.3 th/mm3 (4.0-11.0)
--- NOTE | 2017-12-29 15:13 | MA ---
cc: Nigel Cobb MD, John R DO DATE: 12/29/2017 PROCEDURE PERFORMED: Coronary angiography, bypass graft angiography including left internal mammary arteriography, left radial arterial approach, stenting of the mid left anterior descending coronary artery via the left internal mammary bypass graft. BRIEF HISTORY: Sylvain Soriano is a 57-year-old man with known coronary artery disease. He had a myocardial infarction 11/08/2016 and at that time had stenting of the left posterior descending artery branch, the left posterolateral branch and the first obtuse marginal branch. Subsequent catheterization revealed left main disease so he underwent bypass surgery 03/07/2015 with a left internal mammary graft to the LAD and vein grafts to the first obtuse marginal branch and left posterolateral branch. His last cardiac catheterization was 05/16/2017. They did not image the vein graft to the posterolateral branch. He was managed medically after that catheterization. He comes in now with unstable angina. DESCRIPTION OF PROCEDURE: The patient was brought to the cardiac catheterization lab in a fasting state. I chose the left wrist because of prior left internal mammary bypass and he was on Aggrastat as well as IV heparin and had a high bleeding risk. Sedation was obtained with IV Versed and IV fentanyl, using 1% lidocaine for local anesthesia, a Terumo slender sheath was inserted in the left radial artery without too much difficulty. Next, angiography of the internal mammary bypass was performed using the diagnostic RIVKA catheter. I then obtained angiography of the left coronary artery and the vein graft to the circumflex artery utilizing an AL1. I then did a supravalvular aortogram to locate the graft to the left posterolateral branch that was coming off the right side of the aorta. I was able to image that with a multipurpose catheter. I studied the films and opted to perform intervention of the LAD via the left internal mammary graft. A VB-1 guiding catheter was used to engage the left internal mammary bypass graft origin. LAD disease was easily crossed with a Runthrough wire. I then directly stented the anastomosis of the left internal mammary graft into the mid LAD utilizing a 3.0 mm x 22 mm Resolute stent at 12 atmospheres. An excellent angiographic result was achieved. No further post-dilation was needed. The patient tolerated the procedure well. Guiding catheter was removed over a guidewire. The sheath was to be removed with a Terumo band placed. There were no complications. Intervention was performed after 5000 units of heparin with a therapeutic ACT achieved; standard cocktail was administered at the start of the case. FINDINGS: 1. HEMODYNAMICS: Aortic pressure was 94/55 with a mean of 73. 2. CORONARY ANGIOGRAPHY: The left main coronary artery has proximal stenosis, but does not appear to be high grade. Estimated severity is about 40%. The left main then bifurcates into the LAD and circumflex vessels. The LAD has about 25% proximal disease. It then has at least 70% stenosis before the internal mammary bypass insertion and 75% after the internal mammary bypass insertion. There is also a diagonal branch coming off right at this level. The circumflex artery gives off a major first obtuse marginal branch, which has 90% stenosis and ____ from the bypass graft. The next major branch is a left posterolateral branch. This demonstrates competitive flow. Then there is the left posterior descending artery branch, which has a widely patent stent and irregularities only. Right coronary artery was noted to be nondominant. 3. BYPASS GRAFTS: The left internal mammary bypass graft to the mid LAD is patent; however, there is 75% stenosis in the LAD just past the insertion site. The saphenous vein graft to the first obtuse marginal branch is widely patent. The obtuse marginal branch gives off multiple secondary branches and has irregularities only. The third graft to the left posterolateral branch. The graft is open and provides essentially no anterograde flow. It does provide retrograde flow into the posterolateral branch with 70% stenosis in the center of the stent to this branch compromising some of the flow to the [place] band circumflex from this graft. 4. RESULTS OF STENTING: Following stenting of the internal mammary artery, the 75% mid stenosis reduced to 0% without evidence of thrombus or dissection. CONCLUSIONS: 1. Multivessel coronary artery disease. The left main disease does not appear to be as severe as it was on his prebypass catheterization. There is severe stenosis of the left anterior descending distal to the mid internal mammary bypass. The two vein grafts were patent, but the vein graft to the posterolateral branch provides essentially no antegrade flow. 2. Successful stenting of the mid left anterior descending utilizing a drug-eluting stent. PLAN: The patient will continue on aspirin, Brilinta and anticipate discharge home no later than tomorrow as long as he is stable. MD ELPIDIO Alberts/ari/naya , 12:56 PM , 01:05 PM
[2017-12-30] MEDS: Sod Chloride 0.9% Inj 1,000 ML IV.CONT SCH (03:40)
[2017-12-30 06:02] LABS: Calcium 8.6 mg/dL (8.5-10.1); Carbon Dioxide 25.5 meq/L (21.0-32.0); Potassium 3.7 meq/L (3.5-5.1)
[2017-12-30 08:07] VITALS: BP 124/62; TEMP 97.4; O2SAT 100
[2017-12-30] MEDS: Metoprolol Tartrate 25 MG Tablet PO SCH (08:16)
[2017-12-30] MEDS: amLODIPine 5 MG Tablet PO SCH (08:16)
[2017-12-30] MEDS: Sertraline 50 MG Tablet PO SCH (08:16)
[2017-12-30] MEDS: Senna/Docusate Sodium 8.6/50 MG Tablet PO SCH (08:16)
[2017-12-30] MEDS: Sodium Chloride 0.9% 2 ML Flush BID IV.FLUSH SCH (08:17)
--- NOTE | 2017-12-30 08:36 | P.PN ---
Subjective Interval history: This is a pleasant 57 y/o Male with CAD status post Stent placement x 3, status post CABG 02/2017, and additional stent placement to 1 graft 04/2017, came to ER with chest pain, seen by computer network specialist with Diagnosis of Unstable Angina Pectoris, recommended for Nitroglycerine IV, seen in his bedroom status post Left heart cath, performed by doctor Nigel Cobb with result Multivessel Coronary Artery disease, the left main disease does not appear to be as severe as it was on his prebypass catheterization. There is severe stenosis of the left anterior descending distal to the mid internal mammary bypass. The two vein grafts were patent, but the vein graft to the posterolateral branch provides essentially no antegrade flow, Successful stenting of the mid left anterior descending utilizing a drug-eluting stent. Continue Aspirin, Brilinta. 12/30: Okay to discharge home as per computer network specialist doctor Nigel Cobb, he will continue his Home medicines. Brilinta and Aspirin. No nausea, vomit or diarrhea. Left radial area no swelling, no ecchymosis. Physical Exam Vital signs: Vital Signs 12/29/17 09:00 12/29/17 10:00 12/29/17 13:00 Temperature Pulse Rate 49 L 51 L 48 L Respiratory Rate Blood Pressure Pulse Oximetry 12/29/17 14:00 12/29/17 15:00 12/29/17 16:00 Temperature 98.0 F Pulse Rate 58 L 47 L 51 L Respiratory Rate 16 Blood Pressure 130/62 Pulse Oximetry 92 L 12/29/17 17:00 12/29/17 18:00 12/29/17 19:00 Temperature 98.0 F Pulse Rate 54 L 53 L 52 L Respiratory Rate 16 Blood Pressure 113/59 L Pulse Oximetry 92 L 12/29/17 20:00 12/29/17 21:00 12/29/17 22:00 Temperature Pulse Rate 55 L 51 L 53 L Respiratory Rate Blood Pressure Pulse Oximetry 12/29/17 23:00 12/30/17 00:00 12/30/17 00:59 Temperature 98.0 F Pulse Rate 52 L 51 L 52 L Respiratory Rate 16 Blood Pressure 117/58 L Pulse Oximetry 92 L 12/30/17 02:00 12/30/17 03:00 12/30/17 04:00 Temperature 98.0 F Pulse Rate 50 L 67 56 L Respiratory Rate 16 Blood Pressure 127/64 Pulse Oximetry 92 L 12/30/17 05:00 12/30/17 05:59 12/30/17 07:00 Temperature 97.4 F L Pulse Rate 50 L 55 L 58 L Respiratory Rate 16 Blood Pressure 124/62 Pulse Oximetry 93 L Intake & Output 12/29/17 12/30/17 12/30/17 18:59 06:59 18:59 Intake Total 3180 / 3180 240 / 240 Output Total 850 / 850 Balance 2330 / 2330 240 / 240 Weight 80.5 kg Intake: IV 1760 / 1760 Heparin/NS PF Inj 1,000 ML @ 0 10 / 10 mls/hr .ROUTE .[facility] Rx#: [id number] Heparin/D5W 25,000 U/250 mL 25, 250 / 250 000 unit In 250 ml @ Per Protocol IV.CONT TITRATE PRN Rx #:[id number] NS Inj 1,000 ML @ 100 mls/hr IV 1000 / 1000 .CONT .Q10H [facility] Rx#:[id number] Aggrastat Inj 12,500 mcg In 250 500 / 500 ml @ Per Protocol IV.CONT .Q0M [facility] Rx#:[id number] Oral 920 / 920 240 / 240 Anesthesia Amount 500 / 500 Output: Urine 850 / 850 Other: # Voids 2 Narrative: GENERAL: This is a well-nourished, well-developed patient, in no apparent distress. CARDIOVASCULAR: Regular rate and rhythm without murmurs, gallops, or rubs. RESPIRATORY: Clear to auscultation. Breath sounds equal bilaterally. No wheezes , rales, or rhonchi. GASTROINTESTINAL: Abdomen soft, non-tender, nondistended. Normal active bowel sounds MUSCULOSKELETAL: Extremities without clubbing, cyanosis, or edema. NEURO: Alert & Oriented x4 to person, place, time, situation. Moves all ext x4 Results - Labs CBC & Chem 7: 12/29/17 13:35 12/30/17 04:39 Laboratory Results - last 24 hr 12/29/17 12/30/17 13:35 04:39 WBC 11.3 H RBC 4.34 L Hgb 13.9 Hct 41.5 MCV 95.5 MCH 32.0 MCHC 33.5 RDW 13.4 Plt Count 238 MPV 8.4 Neut % (Auto) 61.1 Lymph % (Auto) 27.3 Johnson % (Auto) 8.4 H Eos % (Auto) 2.4 Baso % (Auto) 0.8 Neut # (Auto) 6.9 Lymph # (Auto) 3.1 Johnson # (Auto) 0.9 Eos # (Auto) 0.3 Baso # (Auto) 0.1 WBC Differential . Differential Comment Auto diff final Sodium 142 Potassium 3.7 Chloride 107 Carbon Dioxide 25.5 Anion Gap 10 BUN 13 Creatinine 0.88 Estimated GFR 89 Random Glucose 100 Calcium 8.6 Assessment and Plan - Plan This is a 57-year-old CM with PMHx of CAD s/p stent placement x3/three-vessel bypass 02/2017, and an additional stent to 1 of the grafts on 04/2017 that presents to ED with complaints of chest pain. Sx also concerning for GERD but do to history admitted for IP mgmt of Chest Pain, HD#2 1. Unstable Angina Status post Left heart cath, performed by doctor Nigel Cobb with result Multivessel Coronary Artery disease, the left main disease does not appear to be as severe as it was on his prebypass catheterization. There is severe stenosis of the left anterior descending distal to the mid internal mammary bypass. The two vein grafts were patent, but the vein graft to the posterolateral branch provides essentially no antegrade flow, Successful stenting of the mid left anterior descending utilizing a drug-eluting stent. Continue Aspirin, Brilinta. as per computer network specialist okay to discharge now. 2. HTN controlled continue home medicines. 3. Hyperlipidemia Continue home Statin, holding Repatha 4. Anxiety Continue home Sertraline 5. GERD Continue home PPI and Carafate as needed 6. DVT PPX: SCD's (patient on Brilinta to prevent arterial thromboembolism) 7. Former smoker x1wk Encouraged continued cessation 8. Hypocalcemia, resolved Calcium 8.1 this AM Calcium 7.2 on admission Status post replacement in ED Code Status: Full Code. Discussed Condition With: Patient and his in the room. Discharge Planning: Discharge home now.
--- NOTE | 2017-12-30 09:00 | P.PNCA ---
Subjective Interval history: The low-grade indigestion he was feeling has been gone since LAD stent Medications and Allergies Active Medications: Active Medications Acetaminophen (Tylenol) 500 mg PO Q6H PRN PRN Reason: pain scale 1-5 Last Admin: 12/29/17 10:15 Dose: 500 mg Al Hydroxide/Mg Hydroxide (Milk Of Magnesia Liq) 30 ml PO Q12H PRN PRN Reason: Mild Constipation Amlodipine Besylate (Norvasc) 2.5 mg PO DAILY [facility] Last Admin: 12/30/17 08:16 Dose: 2.5 mg Aspirin (Ecotrin) 81 mg PO DAILY [facility] Last Admin: 12/30/17 08:16 Dose: 81 mg Bisacodyl (Dulcolax Supp) 10 mg RECTAL DAILY PRN PRN Reason: SEVERE CONSITIPATION Diazepam (Valium) 5 mg PO [employer] [facility] Stop: 01/02/18 07:59 Diphenhydramine HCl (Benadryl) 50 mg PO [employer] [facility] Stop: 01/02/18 07:59 Heparin Sodium (Porcine) (Heparin Inj) 5,000 units IV.PUSH UNSCH PRN PRN Reason: aPTT < 25 Heparin Sodium (Porcine) (Heparin Inj) 2,500 units IV.PUSH UNSCH PRN PRN Reason: aPTT 25-39 Last Admin: 12/29/17 06:16 Dose: 2,500 units Nitroglycerin/Dextrose (Nitroglycerin Drip Premix) 50 mg in 250 mls @ 0 mls/hr IV.CONT TITRATE PRN; Protocol PRN Reason: Per Protocol Last Titration: 12/29/17 04:56 Dose: 15 mcg/min, 4.5 mls/hr Heparin Sodium/Dextrose (Heparin/D5w 25,000 U/250 Ml) 25,000 unit in 250 mls @ 0 mls/hr IV.CONT TITRATE PRN; Protocol PRN Reason: Per Protocol Last Titration: 12/29/17 14:30 Dose: Infused Sodium Chloride (Ns Inj) 1,000 mls @ 100 mls/hr IV.CONT .Q10H [facility] Last Admin: 12/30/17 03:40 Dose: Not Given Lactulose (Lactulose Liq) 30 ml PO DAILY PRN PRN Reason: SEVERE CONSITIPATION Metoprolol Tartrate (Lopressor) 25 mg PO BID [facility] Last Admin: 12/30/17 08:16 Dose: 25 mg Morphine Sulfate (Morphine Inj) 5 mg IV.PUSH Q2H PRN PRN Reason: PAIN SCALE 1 TO 10 Last Admin: 12/29/17 13:31 Dose: 5 mg Nitroglycerin (Nitro-Bid 2% Oint) 0.5 inch TOPICAL Q8HR [facility] Last Admin: 12/30/17 05:16 Dose: Not Given Pantoprazole Sodium (Protonix) 40 mg PO DAILY [facility] Last Admin: 12/30/17 08:16 Dose: 40 mg Pravastatin Sodium (Pravachol) 40 mg PO DAILY [facility] Last Admin: 12/30/17 08:16 Dose: 40 mg Senna/Docusate Sodium (Becca-Colace) 1 tab PO BID [facility] Last Admin: 12/30/17 08:16 Dose: 1 tab Sennosides (Senokot) 17.2 mg PO Q12H PRN PRN Reason: Moderate Constipation Sertraline HCl (Zoloft) 50 mg PO DAILY [facility] Last Admin: 12/30/17 08:16 Dose: 50 mg Sodium Chloride (Ns Flush) 2 ml IV.FLUSH BID [facility] Last Admin: 12/30/17 08:17 Dose: 2 ml Sodium Chloride (Ns Flush) 2 ml IV.FLUSH PRN PRN PRN Reason: FLUSH AFTER USING IV ACCESS Sucralfate (Carafate Liq) 0.14 gm PO DAILY@0800 PRN PRN Reason: Gi Bleeding Prophylaxis Last Admin: 12/29/17 04:25 Dose: 0.14 gm Ticagrelor (Brilinta) 90 mg PO BID [facility] Last Admin: 12/30/17 08:16 Dose: 90 mg Allergies Allergy/AdvReac Type Severity Reaction Status Date / Time penicillin V Allergy Arrhythmias Verified 12/26/17 23:37 Sulfa (Sulfonamide Allergy Drowsiness Verified 12/26/17 23:37 Antibiotics) Home Medications Medication Instructions Recorded Confirmed Type Carafate 140 mg PO DAILY NEB PRN 12/26/17 12/27/17 History amlodipine 2.5 mg PO DAILY 12/26/17 12/26/17 History aspirin [Aspirin Low Dose] 81 mg PO DAILY 12/26/17 12/26/17 History evolocumab [Repatha Syringe] 140 mg SUBCUT Q2W 12/26/17 12/26/17 History metoprolol tartrate 25 mg PO BID 12/26/17 12/26/17 History nitroglycerin [Nitrostat] 0.4 mg SUBLINGUAL Q5-15M PRN 12/26/17 12/26/17 History pantoprazole [Protonix] 40 mg PO DAILY 12/26/17 12/26/17 History pitavastatin calcium [Livalo] 2 mg PO DAILY 12/26/17 12/27/17 History sertraline [Zoloft] 50 mg PO DAILY 12/26/17 12/26/17 History ticagrelor [Brilinta] 90 mg PO BID 12/26/17 12/26/17 History lisinopril 2.5 mg PO DAILY 12/27/17 12/27/17 History Physical Exam Vital signs: Vital Signs 12/29/17 09:00 12/29/17 10:00 12/29/17 13:00 Temperature Pulse Rate 49 L 51 L 48 L Respiratory Rate Blood Pressure Pulse Oximetry 12/29/17 14:00 12/29/17 15:00 12/29/17 16:00 Temperature 98.0 F Pulse Rate 58 L 47 L 51 L Respiratory Rate 16 Blood Pressure 130/62 Pulse Oximetry 92 L 12/29/17 17:00 12/29/17 18:00 12/29/17 19:00 Temperature 98.0 F Pulse Rate 54 L 53 L 52 L Respiratory Rate 16 Blood Pressure 113/59 L Pulse Oximetry 92 L 12/29/17 20:00 12/29/17 21:00 12/29/17 22:00 Temperature Pulse Rate 55 L 51 L 53 L Respiratory Rate Blood Pressure Pulse Oximetry 12/29/17 23:00 12/30/17 00:00 12/30/17 00:59 Temperature 98.0 F Pulse Rate 52 L 51 L 52 L Respiratory Rate 16 Blood Pressure 117/58 L Pulse Oximetry 92 L 12/30/17 02:00 12/30/17 03:00 12/30/17 04:00 Temperature 98.0 F Pulse Rate 50 L 67 56 L Respiratory Rate 16 Blood Pressure 127/64 Pulse Oximetry 92 L 12/30/17 05:00 12/30/17 05:59 12/30/17 07:00 Temperature 97.4 F L Pulse Rate 50 L 55 L 58 L Respiratory Rate 16 Blood Pressure 124/62 Pulse Oximetry 93 L 12/30/17 08:00 Temperature Pulse Rate 58 L Respiratory Rate Blood Pressure Pulse Oximetry Intake & Output 12/29/17 12/30/17 12/30/17 18:59 06:59 18:59 Intake Total 3180 / 3180 240 / 240 Output Total 850 / 850 Balance 2330 / 2330 240 / 240 Weight 80.5 kg Intake: IV 1760 / 1760 Heparin/NS PF Inj 1,000 ML @ 0 10 / 10 mls/hr .ROUTE .[facility] Rx#: [id number] Heparin/D5W 25,000 U/250 mL 25, 250 / 250 000 unit In 250 ml @ Per Protocol IV.CONT TITRATE PRN Rx #:[id number] NS Inj 1,000 ML @ 100 mls/hr IV 1000 / 1000 .CONT .Q10H [facility] Rx#:[id number] Aggrastat Inj 12,500 mcg In 250 500 / 500 ml @ Per Protocol IV.CONT .Q0M [facility] Rx#:[id number] Oral 920 / 920 240 / 240 Anesthesia Amount 500 / 500 Output: Urine 850 / 850 Other: # Voids 2 Narrative: Alert NAD No JVD Chest few rhonchi CV S1S2 RRR Left wrist OK, pulse nl Ext no C/C/E Results 12/29/17 13:35 12/30/17 04:39 Cardiac Enzymes 12/29/17 Range/Units 05:15 AST 18 (15-37) U/L Coagulation 12/28/17 12/28/17 12/29/17 Range/Units 14:55 21:54 05:15 PT 10.4 (9.8-11.6) sec APTT 25.9 32.5 H D 38.4 H (24.3-30.1) sec CBC 12/29/17 Range/Units 13:35 WBC 11.3 H (4.0-11.0) th/mm3 RBC 4.34 L (4.50-5.90) mil/mm3 Hgb 13.9 (13.0-17.0) gm/dL Hct 41.5 (39.0-51.0) % Plt Count 238 (150-450) th/mm3 Neut # (Auto) 6.9 (1.8-7.7) th/mm3 Lymph # (Auto) 3.1 (1.0-4.8) th/mm3 Lyon # (Auto) 0.9 (0.0-0.9) th/mm3 Eos # (Auto) 0.3 (0.0-0.4) th/mm3 Baso # (Auto) 0.1 (0.0-0.2) th/mm3 Comprehensive Metabolic Panel 12/29/17 12/30/17 Range/Units 05:15 04:39 Sodium 142 142 (136-145) meq/L Potassium 3.8 3.7 (3.5-5.1) meq/L Chloride 107 107 (98-107) meq/L Carbon Dioxide 28.2 25.5 (21.0-32.0) meq/L BUN 14 13 (7-18) mg/dL Creatinine 0.96 0.88 (0.60-1.30) mg/dL Calcium 8.2 L 8.6 (8.5-10.1) mg/dL AST 18 (15-37) U/L ALT 33 (12-78) U/L Alkaline Phosphatase 91 (45-117) U/L Total Protein 6.5 (6.4-8.2) g/dL Albumin 3.6 (3.4-5.0) g/dL Intake and Output 12/29/17 12/30/17 12/30/17 22:59 06:59 14:59 Intake Total 2170 / 2170 240 / 240 Output Total 850 / 850 Balance 1320 / 1320 240 / 240 Intake: IV 1250 / 1250 NS Inj 1,000 ML @ 100 mls/hr IV 1000 / 1000 .CONT .Q10H [facility] Rx#:[id number] Aggrastat Inj 12,500 mcg In 250 250 / 250 ml @ Per Protocol IV.CONT .Q0M [facility] Rx#:[id number] Oral 920 / 920 240 / 240 Output: Urine 850 / 850 Other: # Voids 2 Weight 80.5 kg Assessment and Plan - Assessment (1) Unstable angina pectoris Code(s): I20.0 - Unstable angina Status: Acute Plan: resolved (2) Hypertension Code(s): I10 - Essential (primary) hypertension Status: Acute (3) Stented coronary artery Code(s): Z95.5 - Presence of coronary angioplasty implant and graft Status: Acute Plan: cont ASA 81mg and Brilinta (4) CAD (coronary artery disease) Code(s): I25.10 - Atherosclerotic heart disease of [place] coronary artery without angina pectoris Status: Acute (5) History of tobacco abuse Code(s): Z87.891 - Personal history of nicotine dependence Status: Acute Plan: Counseled on cessation - Plan OK to DC home
--- NOTE | 2017-12-30 09:58 | P.DS ---
Date of admission: 12/29/17 14:43 Primary care physician: Murray Cage, Attending physician on discharge: Maciel Gallardo Anticipated date of discharge: 12/30/17 Brief History from admission: This is a 57-year-old CM with PMHx of CAD s/p stent placement x3/three-vessel bypass 02/2017, and an additional stent to 1 of the grafts on 04/2017 that presents to ED with complaints of chest pain. Patient reports that the CP feels like pressure and burning, similar to GERD sx but do not resolved with Tums. The sx worsen with ambulation or minimal exertion. Patient took NG x last night and it relieved sx for 15min. but then the sx recurred. Patient states that the sx are similar to when he had his MS, when needed stents/bypass. Reports Stress test 07/2017 with unknown results. Patient was seen by Dr. Nigel Cobb as a new patient this past Friday, states his medications were changed and he has been compliant with them. Patient is a former smoker, he quit last week. Patient reports that his Education Dean told him that he would likely need another heart catheterization. Patient reports sx are milder today then on admission, patient also have more burping since admission. Patient also has HTN and HLD and is compliant with meds. DS: Diagnosis - Discharge Diagnosis (1) CAD (coronary artery disease) Status: Acute (2) Chest pain Status: Acute DS: Summary Hospital Course: This is a pleasant 57 y/o Male with CAD status post Stent placement x 3, status post CABG 02/2017, and additional stent placement to 1 graft 04/2017, came to ER with chest pain, seen by adult health clinical nurse specialist with Diagnosis of Unstable Angina Pectoris, recommended for Nitroglycerine IV, seen in his bedroom status post Left heart cath, performed by doctor Nigel Cobb with result Multivessel Coronary Artery disease, the left main disease does not appear to be as severe as it was on his prebypass catheterization. There is severe stenosis of the left anterior descending distal to the mid internal mammary bypass. The two vein grafts were patent, but the vein graft to the posterolateral branch provides essentially no antegrade flow, Successful stenting of the mid left anterior descending utilizing a drug-eluting stent. Continue Aspirin, Brilinta. 12/30: Okay to discharge home as per adult health clinical nurse specialist doctor Nigel Cobb, he will continue his Home medicines. Brilinta and Aspirin. No nausea, vomit or diarrhea. Left radial area no swelling, no ecchymosis. Physical Exam Vital signs: Vital Signs 12/29/17 09:00 12/29/17 10:00 12/29/17 13:00 Temperature Pulse Rate 49 L 51 L 48 L Respiratory Rate Blood Pressure Pulse Oximetry 12/29/17 14:00 12/29/17 15:00 12/29/17 16:00 Temperature 98.0 F Pulse Rate 58 L 47 L 51 L Respiratory Rate 16 Blood Pressure 130/62 Pulse Oximetry 92 L 12/29/17 17:00 12/29/17 18:00 12/29/17 19:00 Temperature 98.0 F Pulse Rate 54 L 53 L 52 L Respiratory Rate 16 Blood Pressure 113/59 L Pulse Oximetry 92 L 12/29/17 20:00 12/29/17 21:00 12/29/17 22:00 Temperature Pulse Rate 55 L 51 L 53 L Respiratory Rate Blood Pressure Pulse Oximetry 12/29/17 23:00 12/30/17 00:00 12/30/17 00:59 Temperature 98.0 F Pulse Rate 52 L 51 L 52 L Respiratory Rate 16 Blood Pressure 117/58 L Pulse Oximetry 92 L 12/30/17 02:00 12/30/17 03:00 12/30/17 04:00 Temperature 98.0 F Pulse Rate 50 L 67 56 L Respiratory Rate 16 Blood Pressure 127/64 Pulse Oximetry 92 L 12/30/17 05:00 12/30/17 05:59 12/30/17 07:00 Temperature 97.4 F L Pulse Rate 50 L 55 L 58 L Respiratory Rate 16 Blood Pressure 124/62 Pulse Oximetry 93 L Intake & Output 12/29/17 12/30/17 12/30/17 18:59 06:59 18:59 Intake Total 3180 / 3180 240 / 240 Output Total 850 / 850 Balance 2330 / 2330 240 / 240 Weight 80.5 kg Intake: IV 1760 / 1760 Heparin/NS PF Inj 1,000 ML @ 0 10 / 10 mls/hr .ROUTE .[facility] Rx#: [id number] Heparin/D5W 25,000 U/250 mL 25, 250 / 250 000 unit In 250 ml @ Per Protocol IV.CONT TITRATE PRN Rx #:[id number] NS Inj 1,000 ML @ 100 mls/hr IV 1000 / 1000 .CONT .Q10H [facility] Rx#:[id number] Aggrastat Inj 12,500 mcg In 250 500 / 500 ml @ Per Protocol IV.CONT .Q0M [facility] Rx#:[id number] Oral 920 / 920 240 / 240 Anesthesia Amount 500 / 500 Output: Urine 850 / 850 Other: # Voids 2 Results - Labs CBC & Chem 7: 12/29/17 13:35 12/30/17 04:39 Laboratory Results - last 24 hr 12/29/17 12/30/17 13:35 04:39 WBC 11.3 H RBC 4.34 L Hgb 13.9 Hct 41.5 MCV 95.5 MCH 32.0 MCHC 33.5 RDW 13.4 Plt Count 238 MPV 8.4 Neut % (Auto) 61.1 Lymph % (Auto) 27.3 Schleicher % (Auto) 8.4 H Eos % (Auto) 2.4 Baso % (Auto) 0.8 Neut # (Auto) 6.9 Lymph # (Auto) 3.1 Schleicher # (Auto) 0.9 Eos # (Auto) 0.3 Baso # (Auto) 0.1 WBC Differential . Differential Comment Auto diff final Sodium 142 Potassium 3.7 Chloride 107 Carbon Dioxide 25.5 Anion Gap 10 BUN 13 Creatinine 0.88 Estimated GFR 89 Random Glucose 100 Calcium 8.6 Assessment and Plan - Plan This is a 57-year-old CM with PMHx of CAD s/p stent placement x3/three-vessel bypass 02/2017, and an additional stent to 1 of the grafts on 04/2017 that presents to ED with complaints of chest pain. Sx also concerning for GERD but do to history admitted for IP mgmt of Chest Pain, HD#2 1. Unstable Angina Status post Left heart cath, performed by doctor Nigel Cobb with result Multivessel Coronary Artery disease, the left main disease does not appear to be as severe as it was on his prebypass catheterization. There is severe stenosis of the left anterior descending distal to the mid internal mammary bypass. The two vein grafts were patent, but the vein graft to the posterolateral branch provides essentially no antegrade flow, Successful stenting of the mid left anterior descending utilizing a drug-eluting stent. Continue Aspirin, Brilinta. as per adult health clinical nurse specialist okay to discharge now. 2. HTN controlled continue home medicines. 3. Hyperlipidemia Continue home Statin, holding Repatha 4. Anxiety Continue home Sertraline 5. GERD Continue home PPI and Carafate as needed 6. DVT PPX: SCD's (patient on Brilinta to prevent arterial thromboembolism) 7. Former smoker x1wk Encouraged continued cessation 8. Hypocalcemia, resolved Calcium 8.1 this AM Calcium 7.2 on admission Status post replacement in ED Code Status: Full Code. Discussed Condition With: Patient and his in the room. Discharge Planning: Discharge home now. - Time Spent with Patient Total time spent providing and/or coordinating discharge services: Less than 30 minutes - Quality: VTE Deep Vein Thrombosis/Pulmonary Embolism Present on Admission: No Exam Vital signs: Vital Signs 12/29/17 10:00 12/29/17 13:00 12/29/17 14:00 Temperature Pulse Rate 51 L 48 L 58 L Respiratory Rate Blood Pressure Pulse Oximetry 12/29/17 15:00 12/29/17 16:00 12/29/17 17:00 Temperature 98.0 F Pulse Rate 47 L 51 L 54 L Respiratory Rate 16 Blood Pressure 130/62 Pulse Oximetry 92 L 12/29/17 18:00 12/29/17 19:00 12/29/17 20:00 Temperature 98.0 F Pulse Rate 53 L 52 L 55 L Respiratory Rate 16 Blood Pressure 113/59 L Pulse Oximetry 92 L 12/29/17 21:00 12/29/17 22:00 12/29/17 23:00 Temperature 98.0 F Pulse Rate 51 L 53 L 52 L Respiratory Rate 16 Blood Pressure 117/58 L Pulse Oximetry 92 L 12/30/17 00:00 12/30/17 00:59 12/30/17 02:00 Temperature Pulse Rate 51 L 52 L 50 L Respiratory Rate Blood Pressure Pulse Oximetry 12/30/17 03:00 12/30/17 04:00 12/30/17 05:00 Temperature 98.0 F Pulse Rate 67 56 L 50 L Respiratory Rate 16 Blood Pressure 127/64 Pulse Oximetry 92 L 12/30/17 05:59 12/30/17 07:00 12/30/17 08:00 Temperature 97.4 F L Pulse Rate 55 L 58 L 58 L Respiratory Rate 16 Blood Pressure 124/62 Pulse Oximetry 93 L 12/30/17 09:00 Temperature Pulse Rate 62 Respiratory Rate Blood Pressure Pulse Oximetry Intake & Output 12/29/17 12/30/17 12/30/17 18:59 06:59 18:59 Intake Total 3180 / 3180 240 / 240 Output Total 850 / 850 Balance 2330 / 2330 240 / 240 Weight 80.5 kg Intake: IV 1760 / 1760 Heparin/NS PF Inj 1,000 ML @ 0 10 / 10 mls/hr .ROUTE .[facility] Rx#: [id number] Heparin/D5W 25,000 U/250 mL 25, 250 / 250 000 unit In 250 ml @ Per Protocol IV.CONT TITRATE PRN Rx #:[id number] NS Inj 1,000 ML @ 100 mls/hr IV 1000 / 1000 .CONT .Q10H [facility] Rx#:[id number] Aggrastat Inj 12,500 mcg In 250 500 / 500 ml @ Per Protocol IV.CONT .Q0M [facility] Rx#:[id number] Oral 920 / 920 240 / 240 Anesthesia Amount 500 / 500 Output: Urine 850 / 850 Other: # Voids 2 Narrative: GENERAL: This is a well-nourished, well-developed patient, in no apparent distress. CARDIOVASCULAR: Regular rate and rhythm without murmurs, gallops, or rubs. RESPIRATORY: Clear to auscultation. Breath sounds equal bilaterally. No wheezes , rales, or rhonchi. GASTROINTESTINAL: Abdomen soft, non-tender, nondistended. Normal active bowel sounds MUSCULOSKELETAL: Extremities without clubbing, cyanosis, or edema. NEURO: Alert & Oriented x4 to person, place, time, situation. Moves all ext x4 Results Procedures completed during hospitalization: Status post Left heart cath, performed by doctor Nigel Cobb with result Multivessel Coronary Artery disease, the left main disease does not appear to be as severe as it was on his prebypass catheterization. There is severe stenosis of the left anterior descending distal to the mid internal mammary bypass. The two vein grafts were patent, but the vein graft to the posterolateral branch provides essentially no antegrade flow, Successful stenting of the mid left anterior descending utilizing a drug-eluting stent. Labs on day of discharge: Labs from last 24 hours 12/30/17 12/29/17 04:39 13:35 WBC 11.3 H RBC 4.34 L Hgb 13.9 Hct 41.5 MCV 95.5 MCH 32.0 MCHC 33.5 RDW 13.4 Plt Count 238 MPV 8.4 Neut % (Auto) 61.1 Lymph % (Auto) 27.3 Schleicher % (Auto) 8.4 H Eos % (Auto) 2.4 Baso % (Auto) 0.8 Neut # (Auto) 6.9 Lymph # (Auto) 3.1 Schleicher # (Auto) 0.9 Eos # (Auto) 0.3 Baso # (Auto) 0.1 WBC Differential . Differential Comment Auto diff final Sodium 142 Potassium 3.7 Chloride 107 Carbon Dioxide 25.5 Anion Gap 10 BUN 13 Creatinine 0.88 Estimated GFR 89 Random Glucose 100 Calcium 8.6 - Impressions ITS Impressions Chest X-Ray 12/27/17 00:11 CONCLUSION: No acute disease Discharge Plan - Discharge Disposition Patient Disposition: 01 Discharge Home - Discharge Condition Condition: Good - Discharge Order Discharge Orders: Discharge Order (Routine); Ordered 12/30/17 Ordered By: Maciel Gallardo Cardiology Clear for Discharge (Routine); Ordered 12/30/17 Ordered By: Nigel Cobb - Discharge Details Anticipated Discharge Date: 12/30/17 Discharge Comment: Follow with PCP in three days - Physicians Team Primary Care Provider: Murray Cage Attending Provider: Maciel Gallardo Other Providers: Zulma Mitchell MD
[2017-12-30 10:04] VITALS: PULSE 56
== END 2017-12-30 10:22 | disposition home or self-care (01) ==
LOC: NEDA 23:31 → NEPC 23:31 → NEPFCDU 12-27 05:53 → HCPC 12-27 17:20
PROVIDERS: ADMIT Internal Medicine; ATTEND Internal Medicine